=== PATIENT | male | born 1940 | race Caucasian/White ===

== ENCOUNTER 2016-12-20 09:23 | Observation (INO) | payer MEDICARE, BC ==
[~2016-12-20] VITALS: Ht 185.4 cm; Wt 95.5 kg
[2016-12-20 10:00] LABS: BASOPHILS 0.5 % (0.0-2.0); EOSINOPHILS 5.7 % (0-7); HEMATOCRIT 39.7 % (42.0-54.0); HEMOGLOBIN 13.1 g/dL (13.5-17.5); IMMATURE GRANULOCYTES 0.1 % (0-5); LYMPHOCYTES 15.8 % (15-50); MCH 29.3 pg (26.0-34.0); MCV 88.8 fL (80.0-100.0); MEAN PLATELET VOLUME 8.8 fL (7.4-10.4); MONOCYTES 8.8 % (2-11); NEUTROPHILS 69.1 % (40-80); RBC 4.47 10x6/uL (4.20-6.10); RDW 13.1 % (11.5-14.5); WBC 8.6 10x3/uL (4.8-10.8)
[2016-12-20 10:13] LABS: PLATELET COUNT 426 10x3/uL (130-400)
[2016-12-20 10:24] LABS: ALBUMIN 3.5 g/dL (3.4-5.0); ALKALINE PHOSPHATASE 91 U/L (46-116); ALT (SGPT) 11 U/L (10-68); BILIRUBIN - TOTAL 0.43 mg/dL (0.2-1.3); CALC OSMOLALITY 279 mosm/kg (275-300); CARBON DIOXIDE 28.4 mmol/L (21.0-32.0); CHLORIDE - SERUM 103 mmol/L (98-107); CREATININE - SERUM 1.1 mg/dL (0.6-1.3); GLUCOSE 104 mg/dL (74-106); POTASSIUM - SERUM 3.8 mmol/L (3.5-5.1); PROTEIN - SERUM 7.7 g/dL (6.4-8.2); SODIUM 140 mmol/L (136-145); UREA NITROGEN 15 mg/dL (7-18); eGFR NON AFRICAN AMERICAN 70 mL/min (90-120)
[2016-12-20 10:34] LABS: CHOL - HDL RATIO 3.3 ratio (2.3-4.9); CHOLESTEROL, TOTAL 167 mg/dL (0-200); CKMB 0.6 U/L (0.0-3.6); CREATINE KINASE 46 UL (21-232); HDL CHOLESTEROL 50 mg/dL (32-96); LDL CHOLESTEROL 82 mg/dL (0-100); LDL-HDL RATIO 1.6 ratio (1.5-3.5); TRIGLYCERIDE 177 mg/dL (30-200)
[2016-12-20 10:45] LABS: TROPONIN-I < 0.017 ng/mL (0.000-0.060)
--- NOTE | 2016-12-20 14:03 | NUR ---
TRANSFER FROM ER BY W/C. SUSIEINTED TO ROOM. CALL LIGHT IN REACH. WILL CONT. PLAN OF CARE.
[2016-12-20] MEDS ORDERED: CRESTOR10 MG PO (14:07)
[2016-12-20] MEDS ORDERED: OMEPRAZOLE20 M1 PO (14:08)
[2016-12-20] MEDS ORDERED: SINGULAIR10 MG PO (14:09)
[2016-12-20] MEDS ORDERED: HYZAAR 100-12.51 TAB PO (14:09)
[2016-12-20 14:24] VITALS: BP 130/69; Ht 185.4 cm; Wt 95.5 kg
[2016-12-20] MEDS ORDERED: OXYCODONE HCL5 MG PO (14:32)
[2016-12-20 16:00] VITALS: BP 117/50
--- NOTE | 2016-12-20 19:41 | NUR ---
RESUMED CARE OF PT, LYING IN BED RESPIRATIONS EVEN AND UNLABORED ON 2LPM VIA NC. 82 SR ON TELEMETRY. LEFT AC SALINE LOCKED. PLAN OF CARE DISCUSSED. CALL LIGHT IN REACH. WILL CONTINUE TO MONITOR. SEE NURSE ASSESSMENT.
[2016-12-20 20:39] VITALS: BP 122/62
--- NOTE | 2016-12-21 00:46 | NUR ---
LYING IN BED WITH EYES CLOSED, RESPIRATIONS EVEN AND UNLABORED. CALL LIGHT IN REACH.
[2016-12-21 00:47] VITALS: BP 144/67
[2016-12-21 04:56] VITALS: BP 141/73
--- NOTE | 2016-12-21 06:03 | NUR ---
FREE FROM CHEST PAIN THROUGHOUT THE NIGHT. CARDIAC ENZYMES HAVE REMAINED NEGATIVE. WILL CONTINUE TO MONITOR.
--- NOTE | 2016-12-21 07:29 | NUR ---
ASSESSMENT DONE. PT LAYING IN BED WITH HOB ELEVATED. RESTING BUT EASILY AWAKEN. DENIES CP OR SOB. STERI-STRIPS TO RIGHT BACK CLEAN,DRY AND INTACT. PT WANTS TO GO HOME. CALL LIGHT WITH IN REACH. WILL CONT. TO MONITOR.
[2016-12-21 08:26] VITALS: BP 127/68
--- NOTE | 2016-12-21 09:45 | NUR ---
RESP UL ON . CALL LIGHT IN REACH. WILL CONT. PLAN OF CARE.
[2016-12-21 12:10] VITALS: BP 138/74
--- NOTE | 2016-12-21 12:40 | CN ---
PATIENT NAME:SONYA LYNCH MEDICAL RECORD: [id number] : 44 LOCATION:D.M2 D.2126 ADMIT DATE: 12/20/16 ACCOUNT: [id number] CONSULTING PHYSICIAN: RAFY FERRIS MD REFERRING PHYSICIAN: SOPHIA BUCK MD DATE OF CONSULTATION: 12/20/2016 REQUESTING PHYSICIAN: Bert Orellana MD REASON FOR CONSULTATION: Questionable right-sided pleural effusion. HISTORY OF PRESENT ILLNESS: Mr. 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 Last week he underwent a right lower lobe lobectomy at [facility]. According to the patient, the lymph node biopsy was negative and the tumor was localized. He did well. Last night, he woke up with some epigastric pain and then he has some bowel moment and he felt the abdominal pain got better, but he has few bowel movements, which was like diarrhea. Now, he still have epigastric pain. He denies any chest pain, no shortness of breath. REVIEW OF SYSTEMS: Mainly in the history of present illness. PAST MEDICAL HISTORY: 1. Gastroesophageal reflux disease. 2. Hiatal hernia. 3. Diverticulitis. He was recently diagnosed with squamous cell carcinoma. PAST SURGICAL HISTORY: Status post right lower lobe lobectomy in November 2016 at [facility]. HOME MEDICATIONS: Singulair 10 mg daily, Protonix 40 mg a day, Crestor 10 mg a day, and hydrochlorothiazide 12.5 mg a day. PERSONAL AND SOCIAL HISTORY: The patient is . He is an ex-smoker. He is a nondrinker. He quit smoking 20 years ago. FAMILY HISTORY: Noncontributory. PHYSICAL EXAMINATION: GENERAL: Now, the patient is lying comfortably. He is not in acute distress. VITAL SIGNS: The blood pressure is 117/50, pulse is 83, respirations 20, temperature 97.9, and SpO2 is 99% on 2 liters nasal cannula. HEENT: Conjunctivae pink, sclerae nonicteric. NECK: Neck is supple, no JVD. CHEST: The chest excursion is minimal on the right side, there are crackles on the right side. HEART: Rhythm regular, normal sound, no murmur. ABDOMEN: Soft. Bowel sounds present. No hepatosplenomegaly. RECTAL: Deferred. EXTREMITIES: There is tenderness at the epigastric area. CENTRAL NERVOUS SYSTEM: Cranial nerves II through XII intact. The gait was not tested. CONSULT REPORT [id number] SONYA LYNCH IMAGING: Chest radiograph, there is operative changes in the right side, the right pleural effusion, elevated right hemidiaphragm. LABORATORY DATA: CBC: WBC 8.6, hemoglobin 13.1, hematocrit 39.7, and platelet count 426. Chemistry: Sodium 140, potassium 3.8, BUN 15, and creatinine 1.1. Liver enzymes within normal range. Troponin was 0.017. Albumin is 3.5. HDL is 50. IMPRESSION: 1. Status post right lower lobe lobectomy. 2. Squamous cell carcinoma of the right lung. 3. Chronic obstructive pulmonary disease without exacerbation. 4. Ex-smoker. 5. Epigastric pain, possible diarrhea, rule out acute gastroenteritis, possible secondary to gastroesophageal reflux disease. RECOMMENDATION: Continue Protonix, Xopenex nebulizer p.r.n., Maalox, rule out cardiac causes. If the patient is stable according to Dr. Orellana, he will be discharged. The patient already had an appointment at [facility] with the surgeon. Thank you for involving me in the care of Mr. Lynch. TRANSINT:[id number] Voice Confirmation ID: [id number] DOCUMENT ID: [id number] RAFY FERRIS MD at 1240 CC: SOPHIA BUCK MD [id number] DICTATION DATE: 12/20/16 171 TEXTILE MACHINE MECHANIC: 12/20/16 1846 ADM IN [facility] [address] [place] [address]
--- NOTE | 2016-12-21 14:44 | NUR ---
D/C INSTRUCTIONS GIVEN TO PT AND SPOUSE. IV AND TELEMETRY REMOVED. PT DECLINED W/C AND WISHES TO WALK OUT.
== END 2016-12-21 14:46 | disposition home or self-care (01) ==
LOC: D.ER 09:23 → D.M2 12:55 → OBSVTIME 12:55 → D.M2 12-21 14:46
PROVIDERS: Emergency Medicine; ADMIT Family Medicine
DX: R07.2 Precordial pain (principal); J90 Pleural effusion, not elsewhere classified; C34.90 Malignant neoplasm of unspecified part of unspecified bronchus or lung; K44.9 Diaphragmatic hernia without obstruction or gangrene; K57.92 Diverticulitis of intestine, part unspecified, without perforation or abscess without bleeding; J44.9 Chronic obstructive pulmonary disease, unspecified; K21.9 Gastro-esophageal reflux disease without esophagitis; Z90.2 Acquired absence of lung [part of]; Z87.891 Personal history of nicotine dependence

== ENCOUNTER 2017-02-05 10:35 | Inpatient (IN) | payer MEDICARE, BC ==
[~2017-02-05] VITALS: Ht 185.4 cm; Wt 90.9 kg
[~2017-02-05 10:35] MED LIST: CRESTOR10 MG PO; HYZAAR 100-12.51 TAB PO; OMEPRAZOLE20 M1 PO; OXYCODONE HCL5 MG PO; SINGULAIR10 MG PO
[2017-02-05 12:02] LABS: BASOPHILS 0.2 % (0.0-2.0); EOSINOPHILS 2.7 % (0-7); HEMATOCRIT 40.6 % (42.0-54.0); HEMOGLOBIN 13.5 g/dL (13.5-17.5); IMMATURE GRANULOCYTES 0.5 % (0-5); LYMPHOCYTES 6.9 % (15-50); MCH 29.3 pg (26.0-34.0); MCHC 33.3 g/dL (31.0-37.0); MCV 88.1 fL (80.0-100.0); MEAN PLATELET VOLUME 9.1 fL (7.4-10.4); MONOCYTES 1.4 % (2-11); NEUTROPHILS 88.3 % (40-80); RBC 4.61 10x6/uL (4.20-6.10); RDW 13.8 % (11.5-14.5); WBC 13.3 10x3/uL (4.8-10.8)
[2017-02-05 12:11] LABS: PLATELET COUNT 194 10x3/uL (130-400)
[2017-02-05 12:12] LABS: ALBUMIN 3.5 g/dL (3.4-5.0); ANION GAP 12.8 mmol/L (8-16); BILIRUBIN - TOTAL 0.7 mg/dL (0.2-1.3); CALCIUM 9.9 mg/dL (8.5-10.1); CARBON DIOXIDE 27.9 mmol/L (21.0-32.0); CREATININE - SERUM 1.4 mg/dL (0.6-1.3); POTASSIUM - SERUM 3.7 mmol/L (3.5-5.1); PROTEIN - SERUM 7.1 g/dL (6.4-8.2)
--- NOTE | 2017-02-05 15:00 | NUR ---
RECIEVED FROM ER, DENEIS NEEDS, ANTIBIOTICS STARTED, ORIENTED TO ROOM, CALL LIGHT IN REACH
[2017-02-05] MEDS ORDERED: ASPIRIN EC81 M1 PO (15:32)
[2017-02-05] MEDS ORDERED: CITRUCEL500 MG PO (15:33)
[2017-02-05] MEDS ORDERED: VITAMIN C1000 MG PO (15:33)
[2017-02-05] MEDS ORDERED: OMEGA 3 FISH OI1 CAP PO (15:34)
[2017-02-05] MEDS ORDERED: CO Q-10200 MG PO (15:35)
[2017-02-05] MEDS ORDERED: K-DUR20 MEQ PO (15:36)
[2017-02-05 15:38] VITALS: BP 109/64
[2017-02-05 17:43] VITALS: BP 109/64; Ht 185.4 cm; Wt 90.9 kg
--- NOTE | 2017-02-05 19:00 | NUR ---
PATIENT SUPINE IN BED WATCHING TV. HOB 40 DEGREES. AAOX4. RR EVEN AND UNLABORED. 0 S/S OF DISTRESS. STATES PAIN IS A 7/10 IN RIGHT SIDE. IV TO RIGHT WRIST PATENT WITH NO REDNESS OR SWELLING. TELEMETRY ON. SRX2. BED LOW. CALL LIGHT WITHIN REACH.
[2017-02-05 20:00] VITALS: BP 109/59
--- NOTE | 2017-02-05 20:10 | NUR ---
ASSESSMENT COMPLETE. NIGHTTIME MEDS GIVEN. 2000 DOSE OF ZOSYN HELD BECAUSE PREVIOUS DOSE WAS HUNG LATE. MOTRIN GIVEN FOR PAIN. WILL REASSESS. PUT SCD'S ON PATIENT PER ORDER. SCAB TO RIGHT YOO NOTED. NO OTHER NEEDS AT THIS TIME.
--- NOTE | 2017-02-05 23:00 | NUR ---
PATIENT STATES THAT PAIN IS STILL A 7/10 BUT THAT HE DOES NOT WANT TO TAKE THE NORCO. HE WANTS TO GIVE THE MOTRIN LONGER TO WORK.
[2017-02-06] VITALS: BP 116/62
--- NOTE | 2017-02-06 02:20 | NUR ---
ZOSYN HUNG PER ORDER. PATIENT SLEEPING WITH NO DISTRESS NOTED.
[2017-02-06 04:00] VITALS: BP 114/66
[2017-02-06 05:19] LABS: BASOPHILS 0.2 % (0.0-2.0); EOSINOPHILS 2.9 % (0-7); HEMATOCRIT 35.7 % (42.0-54.0); HEMOGLOBIN 11.9 g/dL (13.5-17.5); IMMATURE GRANULOCYTES 0.2 % (0-5); MCH 29.2 pg (26.0-34.0); MCHC 33.3 g/dL (31.0-37.0); MCV 87.7 fL (80.0-100.0); MEAN PLATELET VOLUME 9.1 fL (7.4-10.4); MONOCYTES 3.3 % (2-11); NEUTROPHILS 85.4 % (40-80); RBC 4.07 10x6/uL (4.20-6.10); RDW 13.7 % (11.5-14.5); WBC 10.4 10x3/uL (4.8-10.8)
[2017-02-06 05:29] LABS: PLATELET COUNT 149 10x3/uL (130-400)
--- NOTE | 2017-02-06 07:30 | NUR ---
ALERT AND ORIENTED, DENIES NEEDS, STATES HE IS DISCHARGED, ASSESSMENT COMPLETE, CALL LIGHT IN REACH BED LOWEST POSITION, WILL OCNTINUE TO MONITOR
--- NOTE | 2017-02-06 08:02 | HP ---
PATIENT: SONYA LYNCH MEDICAL RECORD: [id number] ACCOUNT: [id number] LOCATION:D.MS [id number] : 42 ADMISSION DATE: 02/05/17 HISTORY AND PHYSICAL EXAMINATION REASON FOR ADMISSION: Chest pain and cough. HISTORY OF PRESENT ILLNESS: Mr. Lynch is a 76-year-old male who underwent a right lobar lung resection for squamous cell carcinoma at [facility] approximately 2 months ago. He had complications postoperative, had admission to this hospital for postoperative pleural effusion on 12/20/2016. He started chemotherapy 5 days ago consisting of Gemzar and cisplatin at [facility]. He was also given Neulasta with neutropenia. He states he has chemotherapy 4 days ago. He started Neulasta. The day after, he felt tightness in his chest, bloated, short of breath and dry cough. He felt better the following day and the day before yesterday, but this morning, at 2:00 a.m., he woke up with more coughing that is nonproductive with tightness in his chest. He was advised by the [facility] chemo nurse to come to the ER. He denies fever. Evaluation in the ED was suggestive of a right upper lobe atelectasis or pneumonia. White count of 13,000. Dr. Antonio recommended admission. The patient denies chills or fever and stated he really felt pretty well up until this morning. Denies change in stools, blood per rectum or hemoptysis. PAST MEDICAL HISTORY: Squamous cell carcinoma of the right lung, post-resection at [facility], currently on Gemzar and cisplatin; history of hiatal hernia; umbilical hernia; diverticulitis; GERD; hyperlipidemia; hypertension; BPH. SOCIAL HISTORY: The patient is , ex-smoker, nondrinker, quit smoking 20 years ago. FAMILY HISTORY: Positive for hypertension. CURRENT MEDICATIONS: Aspirin 81 mg a day; Crestor 10 mg with evening meal; omeprazole 20 mg a day; omega-3 fish oil 1 cap p.o. daily; Hyzaar 100/12.5 one p.o. q.a.m.; Gemzar, cisplatin and Neulasta per [facility]. ALLERGIES: None mentioned. REVIEW OF SYSTEMS: GENERAL: Mild fatigue. No fever. HEENT: No recent visual change, sinus congestion or sore throat. RESPIRATORY: Dry cough, mild shortness of breath for the last 2 days post-Neulasta therapy. Denies hemoptysis, cough or sputum production. CARDIAC: No exertional chest pain. GASTROINTESTINAL: No nausea, vomiting or change in stools. GENITOURINARY: Has nocturia once nightly. ENDOCRINE: Denies polyuria, polydipsia, heat or cold intolerance. NEUROLOGIC: No history of stroke, TIA or vascular headaches. INTEGUMENT: No rash or itching. MUSCULOSKELETAL: Has lumbago, without sciatica. Now has chest wall tightness that comes and goes. PSYCHIATRIC: Denies depressed mood. PHYSICAL EXAMINATION: VITAL SIGNS: Temperature 97.4 Fahrenheit orally, pulse 97 and regular, HISTORY AND PHYSICAL [id number] SONYA LYNCH respirations are 16, blood pressure 109/62 with a sat of 99% on room air. GENERAL: The patient is alert and oriented, NAD. HEENT: Normocephalic. Eyes are clear. Oropharynx unremarkable. NECK: No bruits or masses. CHEST: He has decreased breath sounds in the right base. No wheezes are noted. Left lung is clear. Chest wall is nontender. No rashes noted. HEART: Regular rate without MGR. PMI appropriate. ABDOMEN: Soft, nontender, no organomegaly. He has a reducible, half-dollar size umbilical hernia that is nontender. No splenomegaly or left lower quadrant tenderness. GENITOURINARY: Unremarkable. RECTAL: Deferred. EXTREMITIES: No CC&E. INTEGUMENT: No rashes or petechiae. LABORATORY DATA: White count of 13.3 thousand with 88 polys, 6.9 lymphs. H&H is 13.5 and 40.6 respectively. Electrolytes are normal, creatinine is 1.4; glucose is 126, nonfasting. Liver functions are normal. Troponin I is 0.017. Single-view chest x-ray in the ED showed diffuse volume loss throughout the right lung consistent with prior lobectomy, increased right hilar prominence with some subtle airspace disease, could represent atelectasis or focal pneumonia, no pneumothorax is noted. Therefore, a 2-view chest x-ray was obtained showing scarring in the right lower lobe. No acute airspace disease or pneumothorax noted. ASSESSMENT: 1. Chest pain and shortness of breath, possibly secondary to Neulasta therapy. 2. Squamous cell carcinoma of the right lower lobe post-lobectomy. 3. Right upper lobe atelectasis versus pneumonitis. 4. Hypertension. 5. Hyperlipidemia. PLAN: The patient will be admitted for IV antibiotics. Recheck chest x-ray tomorrow. Side effects may well be related to Neulasta. Further workup as indicated. TRANSINT:[id number] Voice Confirmation ID: [id number] DOCUMENT ID: [id number] SOPHIA BUCK MD at 0802 CC: [id number] DICTATION DATE: 02/05/17 1739 OPERATIONS PROGRAM MANAGER: 02/05/17 1853 ADM IN [facility] [address] [place] [address]
[2017-02-06 08:05] VITALS: BP 106/55
--- NOTE | 2017-02-06 08:27 | NUR ---
PT AOX4 RESP EVEN AND NONLABORED PT DENIES NEEDS AT THIS TIME SRX2 BED AT LOWEST SETTING CALL LIGHT WITHIN REACH WILL CONTINUE TO MONITOR
--- NOTE | 2017-02-06 11:06 | NUR ---
DISCHARGE INSTRUCTIONS AND PAPERS GIVEN, QUESTIONS ANSWERED, IV REMOVED TIP INTACT, DISCHARGED PER WC WITH BELONGINGS
--- NOTE | 2017-02-08 06:54 | DS ---
PATIENT:SONYA CHARLES :44 MEDICAL RECORD: [id number] DISCHARGE SUMMARY ADMISSION DATE: 02/05/17 DISCHARGE DATE: 02/06/17 DISCHARGE DIAGNOSES: 1. Chest pain, noncardiac. 2. ADVERSE DRUG REACTION TO NEULASTA. 3. Leukocytosis. 4. Squamous cell carcinoma of the right lower lobe. 5. Atelectasis, right upper lobe. 6. Hypertension. 7. Hyperlipidemia. HOSPITAL COURSE: A 76-year-old male with recent right lower lobe resection for squamous cell carcinoma at [facility] on cisplatin and Gemzar was given Neulasta 4 days ago with onset of chest discomfort on the right chest. He had a dry cough, nonproductive and no fever in the ER, but these symptoms was felt to have early right upper lobe pneumonia. He was admitted. ER physician placed him on Levaquin and piperacillin/Zosyn. The patient's white count was 13,000. Upon my examination, his lungs were essentially clear except for decreased breath sounds in the right base. He had no skin lesions on his chest to suggest early shingles. He was observed overnight. His white count has dropped to 10,000. He was essentially asymptomatic and pain controlled with ibuprofen. D-dimer was obtained and was borderline elevated at 0.9, but he has no clinical symptoms of pulmonary embolus. The patient was feeling well this morning, desires discharge. I think that is prudent. I have reviewed his x-rays with the radiologist this morning, he does not see signs of pneumonia. We will therefore discharge home on his previous medications. He will have followup at [facility] in 2 days for chemo. We will a copy of his chest x-ray with him for them to evaluate. His troponin was less than 0.017. DISCHARGE MEDICATIONS: Ibuprofen mg t.i.d. p.r.n. pain, Crestor 10 mg at h.s., Prilosec 20 mg a day, Singulair 10 mg at h.s., Hyzaar 100/12.5 one q.a.m., aspirin 81 mg daily, Citrucel 1000 mg p.o. b.i.d., ascorbic acid 1000 mg p.o. daily, omega 3 fish oil 1 cap p.o. daily, CoQ10 200 mg p.o. daily. DIET: Low cholesterol. ACTIVITY: Progress as tolerated. Return to clinic to see me as needed. TRANSINT:[id number] Voice Confirmation ID: [id number] DOCUMENT ID: [id number] SOPHIA BUCK MD at 0654 CC: [id number] DICTATION DATE: 02/06/17 08 SERVICES ADVISOR: 02/07/17 0053 DIS IN 02/06/17 [place] [id number] [place] [id number]
== END 2017-02-06 11:09 | disposition home or self-care (01) | DRG 313 ==
LOC: D.ER 10:35 → D.MS 14:20
PROVIDERS: Emergency Medicine; ADMIT Family Medicine
DX: R07.89 Other chest pain (principal); C34.91 Malignant neoplasm of unspecified part of right bronchus or lung; J98.11 Atelectasis; T45.8X5A Adverse effect of other primarily systemic and hematological agents, initial encounter; I10 Essential (primary) hypertension; E78.5 Hyperlipidemia, unspecified

== ENCOUNTER → 2017-05-20 10:50 | Outpatient (CLI) | payer MEDICARE, BC ==
[2017-02-05 17:43] VITALS: BMI 26.4
[~2017-05-20 10:50] MED LIST changes: +ASPIRIN EC81 M1 PO; +CITRUCEL500 MG PO; +CO Q-10200 MG PO; +K-DUR20 MEQ PO; +OMEGA 3 FISH OI1 CAP PO; +VITAMIN C1000 MG PO
== END | disposition home or self-care (01) ==
LOC: D.US 10:50 → D.NM 13:00
DX: K59.00 Constipation, unspecified (principal)

== ENCOUNTER 2017-05-29 02:13 | Outpatient (CLI) | payer MEDICARE, BC ==
[2017-05-28 23:44] LABS: HEMATOCRIT 36.4 % (42.0-54.0); HEMOGLOBIN 12.7 g/dL (13.5-17.5); LYMPHOCYTES 19.5 % (15-50); MCH 30.8 pg (26.0-34.0); MCHC 34.9 g/dL (31.0-37.0); MCV 88.1 fL (80.0-100.0); MEAN PLATELET VOLUME 7.8 fL (7.4-10.4); NEUTROPHILS 69.8 % (40-80); RBC 4.13 10x6/uL (4.20-6.10); RDW 13.9 % (11.5-14.5); WBC 5.6 10x3/uL (4.8-10.8)
[2017-05-28 23:46] LABS: PLATELET COUNT 196 10x3/uL (130-400)
[2017-05-28 23:59] LABS: ALBUMIN 3.4 g/dL (3.4-5.0); ALKALINE PHOSPHATASE 77 U/L (46-116); ALT (SGPT) 17 U/L (10-68); BILIRUBIN - TOTAL 0.57 mg/dL (0.2-1.3); CALC OSMOLALITY 284 mosm/kg (275-300); CALCIUM 9.7 mg/dL (8.5-10.1); CARBON DIOXIDE 29.2 mmol/L (21.0-32.0); CHLORIDE - SERUM 106 mmol/L (98-107); CREATININE - SERUM 1.1 mg/dL (0.6-1.3); GLUCOSE 98 mg/dL (74-106); PROTEIN - SERUM 6.5 g/dL (6.4-8.2); SODIUM 142 mmol/L (136-145); UREA NITROGEN 19 mg/dL (7-18); eGFR NON AFRICAN AMERICAN 69 mL/min (90-120)
[~2017-05-29] VITALS: Ht 185.4 cm; Wt 86.5 kg
--- NOTE | ~2017-05-29 | HEMODYNAMI ---
PATIENT:SONYA CHARLES MEDICAL RECORD: [id number] : 44 [id number] ADMISSION DATE: 05/29/17 Generatedon:05/29/201716:04 Patient name: SONYA CHARLES Patient #: [id number] SSN: DO B: 1940 Date of study: 05/29/2017 Page: Of Hemodynamic Procedure Report Patient Data Patient Demographics Procedure consent was obtained First Name: SONYA Gender: Male Last Name: ARACELI : 1940 Middle Initial: D Age: 76 year(s) Patient #: [id number] Race: Unknown Additional ID: [id number] Contact details [address]: [address] [place] [address] COURT State: [place] City: [place] Zip code: [address] Admission Admission Data Admission Date: 05/29/2017 Admission Time: 3:25 Room #: D.2119 Procedure Procedure Types Cath Procedure Diagnostic Procedure LHC LHC w/Coronaries PCI Procedure Coronary Stent Initial Miscellaneous Procedures Moderate Sedation up to 15 minutes Procedure Description Procedure Date Procedure Date: 05/29/2017 Procedure Start Time: 15:51 Procedure End Time: 16:01 Procedure Staff Name Function Noman Hzd MD Performing Physician Sonia Pendleton RT Scrub Krishna Garcia RN Nurse Yanira Coulter RT Monitor Procedure Data Cath Procedure Fluoroscopy Diagnostic fluoroscopy Total fluoroscopy Time: 1.4 time: 1.4 min min Diagnostic fluoroscopy Total fluoroscopy dose: 242 dose: 242 mGy mGy Contrast Material Contrast Material Type Amount (ml) Isovue 300 59 Entry Location Entry Primary Successful Side Size Upsize Upsize Entry Closure Succes sful Closure Location (Fr) 1 (Fr) 2 (Fr) Remarks Device Remarks Femoral Right 5 Fr 6 Fr Exoseal artery Short Estimated blood loss: 10 ml Diagnostic catheters Device Type Used For End Catheter Placement Cordis 5Fr Pigtail Procedure Catheter (MP) Cordis 5Fr JL 4.0 Procedure Catheter (MP) Cordis 5Fr 3DRC Catheter Procedure (MP) Procedure Complications No complications Procedure Medications Medication Administration Route Dosage Oxygen NC 2 l/min Heparin Flush Bag added to field 2 bags (1000units/500ml NS) 0.9% NaCl I.V. 100 ml/hr Fentanyl I.V. 50 mcg Versed I.V. 1 mg Fentanyl I.V. 50 mcg Heparin Bolus I.V. 4000 units Integrilin (Bolus I.V. 7.9 ml 2mg/ml) Integrilin (Bolus wasted 2.1 ml 2mg/ml) Plavix P.O. 600 mg Hemodynamics Rest Pre Cath Intra NCS Post Cath Vital Signs Time Heart Resp SPO2 NIBP (mmHg) Rhythm Pain Sedation Rate (ipm) (%) Status Level (bpm) 15:33:19 65 18 97 140/68(100) NSR 0 (11) 10(A) , No pain 15:37:33 64 21 100 151/78(120) NSR 0 (11) 10(A) , No pain 15:41:51 62 17 95 120/78(91) NSR 0 (11) 10(A) , No pain 15:45:57 62 18 94 136/79(97) NSR 0 (11) 10(A) , No pain 15:50:15 60 18 99 127/60(86) NSR 0 (11) 9(A) , No pain 15:54:27 65 19 98 133/66(101) NSR 0 (11) 9(A) , No pain 15:58:45 60 18 100 132/58(98) NSR 0 (11) 9(A) , No pain 16:04:02 60 10 100 134/61(103) NSR 0 (11) 10(A) , No pain Medications Time Medication Route Dose Verified Delivered Reason Notes Effectiveness by by 15:36:49 Oxygen NC 2 Krishna Keller Per physician l/min Jose Garcia RN RN 15:36:59 Heparin Flush added 2 Krishna Keller used for Bag to bags Jose Garcia RN procedure (1000units/500ml field RN NS) 15:37:11 0.9% NaCl I.V. 100 Krishna Keller Per physician ml/hr Jose Garcia RN RN 15:47:59 Fentanyl I.V. 50 Krishna Keller for sedation mcg Jose Garcia RN RN 15:48:05 Versed I.V. 1 mg Krishna Keller for sedation Jose Garcia RN RN 15:52:42 Fentanyl I.V. 50 Krishna Keller for sedation mcg Jose Garcia RN RN 15:56:12 Heparin Bolus I.V. 4000 Krishna Keller for units Jose Garcia RN anticoagulation RN 15:56:26 Integrilin I.V. 7.9 Krishna Keller for (Bolus 2mg/ml) ml Jose Garcia RN antiplatelet RN therapy 15:57:17 Integrilin wasted 2.1 Krishna Keller for (Bolus 2mg/ml) ml Jose Garcia RN antiplatelet RN therapy 15:59:54 Plavix P.O. 600 Krishna Keller for mg Jose Garcia RN antiplatelet RN therapy Procedure Log Time Note 15:15:47 Krishna Garcia RN sent for patient. Start room use. 15:31:46 Time tracking: Regular hours 15:31:57 Plan of Care:Hemodynamics will remain stable., Cardiac rhythm will remain stable., Comfort level will be maintained., Respiratory function will remain adequate., Patient/ family verbilizes understanding of procedure., Procedure tolerated without complication., Recovers from procedure without complications.. 15:32:00 Patient received from PCU to CCL 2 Alert and oriented. Tansferred to table in Supine position. 15:32:05 Warm blankets applied, and sylwia hugger turned on for patient comfort. 15:32:05 Correct patient and procedure confirmed by team. 15:32:06 Signed procedure consent form obtained from patient. 15:32:07 ECG and BP/O2 sat monitors applied to patient. 15:32:08 Vital chart was started 15:32:09 Full Disclosure recording started 15:32:23 H&P Date Dictated: 05/28/2017 Within 30 days and on chart.. 15:32:25 Pre-procedure instructions explained to patient. 15:32:27 Family in waiting room. 15:32:29 Patient NPO since Midnight. 15:32:36 Is the patient allergic to Iodine/contrast media? No. 15:32:42 Is patient on blood thinner?Yes 15:32:46 ACC The patient was administered the following blood thiners within the last 24 hours: ACCAspirin 15:32:48 Patient diabetic? No. 15:33:03 Snore? Yes 15:33:05 Sleep apnea? No 15:33:15 Airway obstruction? No lobectomy 15:33:18 Dentures? No ? 15:33:41 Patient pain scale 0/10 ?. 15:33:50 IV patent on arrival in right hand with 0.9% NaCl at [facility]. 15:34:00 Lab results completed and on chart. 15:34:06 Right groin area was prepped with chlora-prep and draped in sterile fashion 15:34:07 Alarms reviewed by R. N. 15:34:08 Sharps counted by scrub and verified by R.N. 15:34:09 Physician paged 15:34:14 Physician arrived 15:36:49 Oxygen 2 l/min NC was administered by Krishna Garcia RN; Per physician; 15:36:59 Heparin Flush Bag (1000units/500ml NS) 2 bags added to field was administered by Krishna Garcia RN; used for procedure; 15:37:11 0.9% NaCl 100 ml/hr I.V. was administered by Krishna Garcia RN; Per physician; 15:45:26 Zero performed for pressure channel P1 15:46:41 --------ALL STOP TIME OUT------ 15:46:41 Final Timeout: patient, procedure, and site verified with staff and physician. All members of the team are in agreement. 15:46:44 Right groin site verified by team. 15:46:47 Physical assessment completed. ASA score P 2 - A patient with mild systemic disease as per Noman Hdz MD. 15:46:51 Sedation plan: IV Moderate Sedation Versed, Fentanyl 15:47:59 Fentanyl 50 mcg I.V. was administered by Krishna Garcia RN; for sedation; 15:48:05 Versed 1 mg I.V. was administered by Krishna Garcia RN; for sedation; 15:48:59 Use device set Femoral Dx 15:49:00 Acist Syringe opened to sterile field. 15:49:00 Bag Decanter opened to sterile field. 15:49:01 Medline Cath Pack opened to sterile field. 15:49:01 Terumo 5Fr [place] Sheath opened to sterile field. 15:49:02 St Kenneth 260cm J .035 wire opened to sterile field. 15:49:03 Acist Hand Control opened to sterile field. 15:49:04 Acist Manifold opened to sterile field. 15:49:04 Diagnostic Infinity 5Fr Multipack catheter opened to sterile field. 15:49:10 Tegaderm 4 x 4 opened to sterile field. 15:51:47 Procedure started. 15:51:59 Local anesthetic to right femoral artery with Lidocaine 2% by Noman Hdz MD.INITIAL ACCESS ONLY 15:52:09 A 5 Fr sheath was inserted into the Right Femoral artery 15:52:19 A Cordis 5Fr Pigtail Catheter (MP) was advanced over the wire and used for Procedure. 15:52:42 Fentanyl 50 mcg I.V. was administered by Krishna Garcia RN; for sedation; 15:52:52 EF : 50 % 15:52:58 Catheter removed. 15:53:06 A Cordis 5Fr JL 4.0 Catheter (MP) was advanced over the wire and used for Procedure. 15:53:26 LCA angiography performed. 15:53:48 Catheter removed. 15:53:55 A Cordis 5Fr 3DRC Catheter (MP) was advanced over the wire and used for Procedure. 15:53:58 RCA angiography performed. 15:54:30 Catheter removed. 15:55:38 Cordis 6FR XBLAD 3.5 guide catheter opened to sterile field. 15:55:40 Terumo 6Fr [place] Sheath opened to sterile field. 15:55:41 Careem BasixCompak Inflation Kit opened to sterile field. 15:55:42 Gan Whisper J 300cm 0.014 guide wire opened to sterile field. 15:55:56 Sheath upsized to a 6 Fr Short. 15:56:12 Heparin Bolus 4000 units I.V. was administered by Krishna Garcia RN; for anticoagulation; 15:56:26 Integrilin (Bolus 2mg/ml) 7.9 ml I.V. was administered by Krishna Garcia RN; for antiplatelet therapy; 15:56:57 6 Fr XBLAD guide catheter was inserted over the wire 15:56:59 Wire advanced across lesion. 15:57:17 Integrilin (Bolus 2mg/ml) 2.1 ml wasted was administered by Krishna Garcia RN; for antiplatelet therapy; 15:57:34 Inflation Number: 1 A Trekea Integrity 3.0 X 18 stent was prepped and advanced across the Mid LAD. The stent was deployed at 11 [place] for 0:00 (min:sec). 15:59:01 Wire removed. 15:59:02 Guide catheter removed. 15:59:15 Sheath removed intact; hemostasis achieved with Exoseal to the Right Femoral artery. 15:59:27 Cordis 6Fr Exoseal opened to sterile field. 15:59:30 Procedure ended.(Physican Out) 15:59:45 Fluoroscopy time 01.40 minutes. 15:59:51 Fluoroscopy dose: 242 mGy 15:59:51 Flurop Dose total: 242 15:59:54 Plavix 600 mg P.O. was administered by Krishna Garcia RN; for antiplatelet therapy; 16:00:11 Contrast amount:Isovue 300 59ml. 16:00:13 Sharps counted by scrub and verified by R.N. 16:00:15 Insertion/operative site no bleeding no hematoma. 16:00:20 Post-op/insertion site Right Femoral artery dressed using a 4 x 4 and Tegaderm. 16:00:22 Post Procedure Pulses reassessed and unchanged 16:00:28 Post-procedure physical assessment completed. ASA score P 2 - A patient with mild systemic disease as per Noman Hdz MD. 16:00:31 Post procedure rhythm: unchanged. 16:00:34 Estimated blood loss: 10 ml 16:00:36 Post procedure instruction explained to patient.Patient verbalizes understanding. 16:00:42 Procedure type changed to Cath procedure, Diagnostic procedure, LHC, LHC w/Coronaries, PCI procedure, Coronary Stent Initial, Miscellaneous Procedures, Moderate Sedation up to 15 minutes 16:00:44 Procedure and supply charges have been captured, reviewed, submitted and are correct. 16:01:20 Procedure Complication : No complications 16:01:23 Vital chart was stopped 16:01:24 See physician's report for complete and final results. 16:01:29 Report given to Med II. 16:01:35 Patient transfered to Med II with Bed. 16::37 Procedure ended. 16:01:37 Full Disclosure recording stopped 16::44 End room use (Document Last) 16:01:57 ACC-PCI Only Patient was given prescriptions, or instructed by Noman Hdz MD to start/continue the following medications upon discharge: Plavix Intervention Summary Intervention Notes Time ActionType Lesion and Equipment Action# Pressure Duration Attributes Used 15:57:34 Place stent Mid LAD Medtronic 1 11 00:00 Integrity 3.0 X 18 stent Device Usage Item Name Manufacture Quantity Catalog Hospital Part Current Minimal L ot# / Number Charge Number Stock Stock Serial# Code Acist Acist 1 97814 951982 467443 952211 20 Syringe Medical Systems Inc Bag Microtek 1 2002S 760985 29952 568544 5 DecQVIVO Medical Inc. Medline Cardinal 1 [id number] 319106 32276 361697 5 Cath Pack Health Terumo 5Fr Terumo 1 MHC828 468149 421013 240600 [address] Kenneth 1 954236 411429 834821 990936 30 260cm J .035 wire Acist Hand Acist 1 82976 853291 547134 316499 5 Control Medical Systems Inc Acist Acist 1 80235 006136 035089 116304 5 LiveExercise Medical Systems Inc Diagnostic Cardinal 1 [id number] 943793 61220 862796 30 Infinity Health 5Fr Multipack catheter Tegaderm 4 3M 1 1626W 357959 300099 020906 5 x 4 Cordis 5Fr Cardinal 1 781297 5 Pigtail Health Catheter (MP) Cordis 5Fr Cardinal 1 413023 5 JL 4.0 Health Catheter (MP) Cordis 5Fr Cardinal 1 566802 5 3DRC Health Catheter (MP) Cordis 6FR Cardinal 1 [id number] 291310 502064 216558 10 XBLAD 3.5 Health guide catheter Terumo 6Fr Terumo 1 [id number] 433073 784497 587880 40 [place] Sheath Merit Merit 1 WY9102 394312 877982 915509 15 BasixOnfank Medical Inflation Kit Gan Gan 1 [id number] 366829 302668 815944 5 Whisper J Vascular 300cm 0.014 guide wire Medtronic Medtronic 1 [id number] 132209 247916 1 0 [id number] Integrity 3.0 X 18 stent Cordis 6Fr Cardinal 1 EX600 949696 336486 417858 10 WANdisco Signature Audit Mineral Stage Time Signature Unsigned Intra-Procedure 05/29/2017 Yanira Coulter 4:04:40 PM RT(R) Signatures Monitor : Yanira Coulter Signature : RT Date : Time : [address] [place] [address]
[2017-05-29 00:12] LABS: CHOL - HDL RATIO 3.2 ratio (2.3-4.9); CHOLESTEROL, TOTAL 153 mg/dL (0-200); CKMB 0.6 U/L (0.0-3.6); CREATINE KINASE 62 UL (21-232); HDL CHOLESTEROL 48 mg/dL (32-96); LDL CHOLESTEROL 59 mg/dL (0-100); LDL-HDL RATIO 1.2 ratio (1.5-3.5); TRIGLYCERIDE 231 mg/dL (30-200); TROPONIN-I < 0.017 ng/mL (0.000-0.060)
[2017-05-29 03:37] LABS: CKMB 0.7 U/L (0.0-3.6); CREATINE KINASE 63 UL (21-232); TROPONIN-I < 0.017 ng/mL (0.000-0.060)
--- NOTE | 2017-05-29 07:35 | NUR ---
TRANSFER FROM ER BY W/C. SUSIEINTED TO ROOM. CALL LIGHT IN REACH. WILL CONT. PLAN OF CARE.
[2017-05-29 08:10] VITALS: Ht 185.4 cm; Wt 86.5 kg
[2017-05-29 08:50] LABS: BASOPHILS 0.2 % (0-2); EOSINOPHILS 5.5 % (0-7); HEMATOCRIT 38.3 % (42.0-54.0); IMMATURE GRANULOCYTES 0.2 % (0-5); LYMPHOCYTES 19.5 % (15-50); MCH 30.8 pg (26.0-34.0); MCHC 33.9 g/dL (31.0-37.0); MEAN PLATELET VOLUME 8.4 fL (7.4-10.4); MONOCYTES 8.5 % (2-11); NEUTROPHILS 66.1 % (40-80); RBC 4.22 10x6/uL (4.20-6.10); RDW 13.8 % (11.5-14.5); WBC 5.1 10x3/uL (4.8-10.8)
[2017-05-29 08:56] LABS: MCV 90.8 fL (80.0-100.0); PLATELET COUNT 149 10x3/uL (130-400)
[2017-05-29 09:07] VITALS: BP 121/66
[2017-05-29 09:20] LABS: CALC OSMOLALITY 286 mosm/kg (275-300); CALCIUM 9.8 mg/dL (8.5-10.1); CARBON DIOXIDE 29.6 mmol/L (21.0-32.0); CHLORIDE - SERUM 107 mmol/L (98-107); CKMB 0.4 U/L (0.0-3.6); CREATINE KINASE 51 UL (21-232); GLUCOSE 96 mg/dL (74-106); POTASSIUM - SERUM 3.8 mmol/L (3.5-5.1); SODIUM 143 mmol/L (136-145); UREA NITROGEN 18 mg/dL (7-18); eGFR NON AFRICAN AMERICAN 78 mL/min (90-120)
[2017-05-29 09:21] LABS: TROPONIN-I < 0.017 ng/mL (0.000-0.060)
--- NOTE | 2017-05-29 09:56 | NUR ---
TELEMETRY SR. CONSENTS SIGNED FOR [facility]. WILL CONT. PLAN OF CARE.
[2017-05-29 12:08] VITALS: BP 120/62
[2017-05-29 15:16] LABS: CKMB 0.5 U/L (0.0-3.6); CREATINE KINASE 46 UL (21-232); TROPONIN-I < 0.017 ng/mL (0.000-0.060)
--- NOTE | 2017-05-29 15:19 | NUR ---
PRE-OPS GIVEN. TO INDUSTRIAL RELATIONS ANALYST BY BED.
[2017-05-29 19:00] VITALS: BP 126/55
--- NOTE | 2017-05-29 20:42 | NUR ---
RESUMED CARE OF PT, LYING IN BED RESPIRATIONS EVEN AND UNLABORED ON ROOM AIR. RIGHT FOREARM INFUSING NS @ 100. [address] ON TELEMETRY. RIGHT GROIN C/D/I, PEDAL PULSE PALPABLE. CALL LIGHT IN REACH. WILL CONTINUE TO MONITOR. SEE NURSE ASSESSMENT.
--- NOTE | 2017-05-30 01:34 | NUR ---
CALL LIGHT IN REACH, WILL CONTINUE WITH PLAN OF CARE.
[2017-05-30 06:03] LABS: BASOPHILS 0.5 % (0-2); EOSINOPHILS 5.8 % (0-7); HEMATOCRIT 38.3 % (42.0-54.0); MCHC 33.9 g/dL (31.0-37.0); MCV 91.2 fL (80.0-100.0); MEAN PLATELET VOLUME 8.5 fL (7.4-10.4); NEUTROPHILS 62.7 % (40-80); PLATELET COUNT 148 10x3/uL (130-400)
[2017-05-30 06:21] LABS: ANION GAP 11.9 mmol/L (8-16); CARBON DIOXIDE 29.2 mmol/L (21.0-32.0); CREATININE - SERUM 1.1 mg/dL (0.6-1.3); POTASSIUM - SERUM 4.1 mmol/L (3.5-5.1)
[2017-05-30 06:24] VITALS: BP 141/75
[2017-05-30 06:28] LABS: CALCIUM 9.9 mg/dL (8.5-10.1)
[2017-05-30] MEDS ORDERED: PROTONIX40 MG PO (07:16)
[2017-05-30] MEDS ORDERED: PLAVIX75 MG PO (07:16)
--- NOTE | 2017-05-30 07:30 | NUR ---
RECEIVED PT IN BED AAOX4 RESP UNLABORED NAD NOTED VISITING WITH DR BUCK
[2017-05-30 08:00] VITALS: BP 126/69
--- NOTE | 2017-05-30 10:23 | NUR ---
REVIEWED DISCHARGE INSTRUCTIONS WITH PT STATES UNDERSTANDING COPY GIVEN DCD SALINE LOCK TO RFA WITH 20 GA IV CATH INTACT SITE FREE OF REDNESS OR EDEMA PT DISCHARGED HOME IN STABLE CONDITION WITH ALL PERSONAL BELONGINGS LEFT VIA W/C
--- NOTE | 2017-06-05 13:54 | PRO ---
PATIENT:SONYA CHARLES MEDICAL RECORD: [id number] : 44 LOCATION:[facility] ADMISSION DATE: 05/29/17 PROCEDURE PERFORMED BY: FREDERICK MARTIN MD PROCEDURE DATE: 05/29/17 PROCEDURES: 1. Percutaneous transluminal coronary angioplasty stent left anterior descending. 2. Left heart catheterization. 3. Selective coronary angiography. 4. Left ventriculogram. INDICATION: Unstable angina. PROCEDURE IN DETAIL: After informed consent was obtained and after detailed explanation of risks, benefits, as well as alternative therapies, the patient elected to proceed with angiogram and angioplasty. The right femoral area was prepped and draped in a normal sterile fashion. The right femoral artery was cannulated via modified Seldinger technique with placement of 6-Greek sheath. All catheters exchanged through this sheath. FINDINGS: Left ventricular chamber size is within normal limits. Left ventricular systolic function is normal. Overall ejection fraction estimated at 60%. SELECTIVE CORONARY ANGIOGRAPHY: 1. Left main is with no significant angiographic disease. 2. The left anterior descending has 75% stenosis in the mid vessel. Otherwise, only mild irregularities. 3. The left circumflex has mild irregularities but no flow-limiting stenosis. 4. The right coronary artery has mild irregularities but no flow-limiting stenosis. PTCA STENT OF THE LEFT ANTERIOR DESCENDING: The stent used is a 3.0 X 18 millimeter Integrity. The result was 0% residual stenosis. OVERALL IMPRESSION: Successful percutaneous transluminal coronary angioplasty stent of the left anterior descending going from 75% initial stenosis to 0% residual stenosis. FREDERICK MARTIN MD at 1354 CC: [id number] DICTATION DATE: 05/29/17 1500 WEB WORKER: DM 05/30/17 1440 DEP CLI 05/30/17 [place] [id number] [place] [id number]
== END 2017-05-30 10:23 | disposition home or self-care (01) ==
LOC: OBSVTIME → D.CATH 02:13 → D.M2 03:25 → D.ER 03:25 → OBSVTIME 03:25 → D.M2 03:25 → EDSTATUS 09:00 → D.M2 05-30 10:23 → D.CATH 05-30 10:23
PROVIDERS: Family Medicine; Internal Medicine Interventional Cardiology
DX: I25.110 Atherosclerotic heart disease of native coronary artery with unstable angina pectoris (principal); I10 Essential (primary) hypertension; C34.31 Malignant neoplasm of lower lobe, right bronchus or lung; E78.5 Hyperlipidemia, unspecified; Z82.49 Family history of ischemic heart disease and other diseases of the circulatory system; Z01.812 Encounter for preprocedural laboratory examination; J45.909 Unspecified asthma, uncomplicated; Z87.891 Personal history of nicotine dependence; Z98.890 Other specified postprocedural states; F41.9 Anxiety disorder, unspecified; K21.9 Gastro-esophageal reflux disease without esophagitis; K44.9 Diaphragmatic hernia without obstruction or gangrene; K81.9 Cholecystitis, unspecified; Z79.82 Long term (current) use of aspirin; Z79.899 Other long term (current) drug therapy; Z88.6 Allergy status to analgesic agent; Z88.8 Allergy status to other drugs, medicaments and biological substances

== ENCOUNTER 2017-06-09 11:56 | Observation (INO) | payer MEDICARE, BC ==
[~2017-06-09] VITALS: Ht 185.4 cm; Wt 86.4 kg
--- NOTE | ~2017-06-09 | HP ---
PATIENT: SONYA CHARLES MEDICAL RECORD: [id number] ACCOUNT: [id number] LOCATION:[facility].0 : 42 ADMISSION DATE: 06/09/17 HISTORY AND PHYSICAL EXAMINATION REASON FOR OBSERVATION ADMISSION: Acute onset of his left scapular pain and vertigo. HISTORY OF PRESENT ILLNESS: The patient is a 76-year-old male, who underwent an Integrity stent to the mid LAD for 75% stenosis and exertional chest pain last week. Did well with procedure and felt well. He went back to Saturday school this morning with his , and while driving home, he was not feeling well, he stated that he felt like he had some upper shoulder discomfort, then developed marked vertigo. He cannot raise his head up without the room spinning and he was nauseous. He denied exertional chest pain and said this pain is scapular with similarly what he had with angina, but he had no typical exertional anginal symptoms as before. He also has known acalculous cholelithiasis, was scheduled for surgery prior to his stent placement. The patient came to the ED and was very anxious and vertiginous. He was given Antivert and some IV fluids and he is now improved somewhat, but due to his upper chest and scapular pain, I was elected to observe him overnight. Denies any recent sinus congestion or previous vertigo or head injury. 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 History of asthma, anxiety, hyperlipidemia, osteoarthritis and essential hypertension. PAST SURGICAL HISTORY: Right lower lobectomy in November 2016 for squamous cell carcinoma at [facility]. He has had left knee arthroscopy. ALLERGIES: MELOXICAM, SIMVASTATIN. FAMILY HISTORY: Positive for lung disease in his father. SOCIAL HISTORY: A former smoker. No alcohol use or recreational drug use. 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 HOME MEDICATIONS: Plavix 75 mg a day; Crestor 10 mg Saturday, Saturday and Saturday evening; losartan 50 mg daily/12.5 q. day, losartan and HCTZ 50/12.5 one q.a.m., fish oil 1 cap daily, aspirin 81 mg a day, ascorbic acid, vitamin C 1000 mg daily, Protonix 40 mg a day, Singulair 10 mg with evening meal, Tylenol 500 mg q.6 p.r.n. REVIEW OF SYSTEMS: GENERAL: No fever or fatigue and felt well until this afternoon. HEENT: No recent visual change or hearing difficulty of new onset. He had marked vertigo as mentioned with the room spinning, now improving post-therapy. Denies otalgia. RESPIRATORY: No SOB. CARDIAC: No exertional chest pain, has left scapular pain that is worse with moving and raising his arm, abducting his left shoulder and is tender to palpation over the medial scapula. HISTORY AND PHYSICAL [id number] SONYA CHARLES RESPIRATORY: No shortness of breath. GASTROINTESTINAL: No nausea or vomiting except nausea associated with the vertigo, which has improved. ENDOCRINE: Denies polyuria, polydipsia, heat or cold intolerance. NEUROLOGIC: No history of stroke, TIA, or vascular headaches. INTEGUMENT: No rash or itching. PHYSICAL EXAMINATION: VITAL SIGNS: Temperature 97.2 Fahrenheit, pulse 66 and regular, respirations 22 and unlabored, blood pressure 160/64 with a sat of 100% on room air. HEENT: Head is normocephalic. Eyes are clear. Ears visualized with normal TMs. No erythema. Extraocular muscles are intact and upper, lower or downward gaze does not cause more vertigo. NECK: No bruits or masses. CHEST: Nontender. CHEST: Clear with some pain in his left upper scapula with deep inspiration. HEART: Regular rate. ABDOMEN: Soft and nontender. GENITOURINARY: Deferred. EXTREMITIES: No CC&E. SKIN: He has some bruising over his right ankle medially. This was the side his cardiac catheterization was performed on. UPPER BACK: On exam, he has reproducible pain in his left scapula with palpation medially and inferiorly in the scapula and also with raising his arm up to 90 degrees. Pain improved in lowering his arm. IMAGING: CT head is unremarkable for bleed or stroke. Chest x-ray shows right jugular [id number], right hemidiaphragm is elevated from previous surgery. Otherwise, no acute cardiopulmonary disease is appreciated. LABORATORY DATA: His white count is 7000, H&H of 13 and 38.8 with normal diff. Chemistry is normal. Glucose is normal. Liver functions are normal. Troponin is negative times 2. ASSESSMENT: 1. Acute vertigo. 2. Atypical chest and scapular pain with recent PTCA of the LAD. 3. Squamous cell carcinoma of the right lower lobe post lobectomy. 4. Hypertension. 5. Anxiety. 6. Probable pleurisy and scapular bursitis. PLAN: The patient was admitted for observation. We will have serial enzymes and telemetry. We will place on scheduled Tylenol to see if that improve his pain. Also placed on Antivert 25 mg q.8 hours routine, reevaluate in the morning. TRANSINT:[id number] Voice Confirmation ID: [id number] DOCUMENT ID: [id number] 06/11/2017 Edited to fill in lori downing. HISTORY AND PHYSICAL [id number] SONYA CHARLES TIMOTHY MD CC: [id number] DICTATION DATE: 06/09/171917 BATHING SUIT MAKER: 06/09/17 2346 DIS IN 06/10/17 [facility] [address] [place] [address]
[~2017-06-09 11:56] MED LIST changes: +PLAVIX75 MG PO; +PROTONIX40 MG PO
[2017-06-09 12:22] LABS: BASOPHILS 0.4 % (0-2); HEMATOCRIT 38.8 % (42.0-54.0); HEMOGLOBIN 13.1 g/dL (13.5-17.5); IMMATURE GRANULOCYTES 0.1 % (0-5); LYMPHOCYTES 27.7 % (15-50); MCH 30.5 pg (26.0-34.0); MCHC 33.8 g/dL (31.0-37.0); MCV 90.4 fL (80.0-100.0); MEAN PLATELET VOLUME 8.5 fL (7.4-10.4); MONOCYTES 8.8 % (2-11); PLATELET COUNT 186 10x3/uL (130-400); RBC 4.29 10x6/uL (4.20-6.10); RDW 13.4 % (11.5-14.5); WBC 7.3 10x3/uL (4.8-10.8)
[2017-06-09 12:40] LABS: ALBUMIN 3.9 g/dL (3.4-5.0); ALKALINE PHOSPHATASE 80 U/L (46-116); ALT (SGPT) 16 U/L (10-68); BILIRUBIN - TOTAL 0.68 mg/dL (0.2-1.3); CALC OSMOLALITY 280 mosm/kg (275-300); CALCIUM 10.2 mg/dL (8.5-10.1); CARBON DIOXIDE 26.9 mmol/L (21.0-32.0); CHLORIDE - SERUM 105 mmol/L (98-107); CREATININE - SERUM 1.1 mg/dL (0.6-1.3); GLUCOSE 89 mg/dL (74-106); POTASSIUM - SERUM 3.9 mmol/L (3.5-5.1); PROTEIN - SERUM 6.6 g/dL (6.4-8.2); SODIUM 141 mmol/L (136-145); UREA NITROGEN 16 mg/dL (7-18); eGFR NON AFRICAN AMERICAN 69 mL/min (90-120)
[2017-06-09 12:51] LABS: CHOLESTEROL, TOTAL 160 mg/dL (0-200); CKMB 0.5 U/L (0.0-3.6); CREATINE KINASE 62 UL (21-232); HDL CHOLESTEROL 53 mg/dL (32-96); LDL CHOLESTEROL 82 mg/dL (0-100); LDL-HDL RATIO 1.5 ratio (1.5-3.5); TRIGLYCERIDE 129 mg/dL (30-200)
[2017-06-09 12:53] LABS: TROPONIN-I < 0.017 ng/mL (0.000-0.060)
[2017-06-09] MEDS ORDERED: HYZAAR 50-12.51 TAB PO (16:25)
--- NOTE | 2017-06-09 16:44 | NUR ---
RECIEVED FROM ER. ALERT AND ORIENTED. IP TO RIGHT CHEST. IV TO LEFT HAND. DENIES ANY NEEDS AT PRESENT TIME. DR. BUCK HERE
[2017-06-09 17:07] VITALS: Ht 185.4 cm; Wt 86.4 kg
[2017-06-09 17:24] LABS: CREATINE KINASE 53 UL (21-232)
[2017-06-09 17:25] LABS: TROPONIN-I < 0.017 ng/mL (0.000-0.060)
--- NOTE | 2017-06-09 18:33 | NUR ---
HOB UP. DENIES ANY NEEDS. NO PAIN. TELEMERTY SHOWS SR.SR UP WITH CALL LIGHT IN REACH
--- NOTE | 2017-06-09 20:00 | NUR ---
RESTING IN BED WITH NO DISTRESS. RESPS EVEN/NONLABORED ON ROOM AIR. DENIES CHEST PAIN. SR PER TELEMETRY NS @ 75ML/HR. SEE ASSESSMENT. CPOC.
[2017-06-09 21:40] VITALS: BP 119/61
--- NOTE | 2017-06-09 22:43 | NUR ---
HS MEDS GIVEN. REVIEWED PURPOSE OF MECLIZINE. GAVE NORCO FOR BACK PAIN AND HELD SCHEDULED TYLENOL.
[2017-06-09 23:17] LABS: CREATINE KINASE 48 UL (21-232); TROPONIN-I < 0.017 ng/mL (0.000-0.060)
[2017-06-10 04:36] VITALS: BP 115/60
[2017-06-10 05:19] LABS: CKMB 0.1 U/L (0.0-3.6); CREATINE KINASE 42 UL (21-232)
[2017-06-10 05:21] LABS: TROPONIN-I < 0.017 ng/mL (0.000-0.060)
[2017-06-10 08:00] VITALS: BP 110/53
--- NOTE | 2017-06-10 09:48 | NUR ---
TELEMETRY SR. IP ACCESSED AND FLUSHED WITH 10CC NS. BLOOD RETURN NOTED. LINE IS PATENT.
[2017-06-10 12:46] VITALS: BP 124/57
[2017-06-10] MEDS ORDERED: MECLIZINE HCL25 MG PO (12:56)
--- NOTE | 2017-06-10 14:43 | NUR ---
IV AND TELEMETRY DCD. DC PLANS GIVEN. UNDERSTANDING VOICED. ESCORTED TO CAR BY W/C.
== END 2017-06-10 14:45 | disposition home or self-care (01) ==
LOC: D.ER 11:56 → OBSVTIME 14:15 → D.M2 14:15
PROVIDERS: Family Medicine; ADMIT Family Medicine
DX: R07.89 Other chest pain (principal); R42 Dizziness and giddiness; I25.10 Atherosclerotic heart disease of native coronary artery without angina pectoris; Z95.5 Presence of coronary angioplasty implant and graft; Z85.118 Personal history of other malignant neoplasm of bronchus and lung; I10 Essential (primary) hypertension; E78.5 Hyperlipidemia, unspecified; F41.9 Anxiety disorder, unspecified; Z87.891 Personal history of nicotine dependence; K21.9 Gastro-esophageal reflux disease without esophagitis; K81.9 Cholecystitis, unspecified

== ENCOUNTER 2017-07-09 11:01 | Outpatient (CLI) | payer MEDICARE, BC ==
[~2017-07-09] VITALS: Ht 185.4 cm; Wt 87.7 kg
[~2017-07-09 11:01] MED LIST changes: +HYZAAR 50-12.51 TAB PO; +MECLIZINE HCL25 MG PO
[2017-07-09 11:29] VITALS: BP 118/68; Ht 185.4 cm; Wt 87.7 kg
--- NOTE | 2017-07-09 11:48 | NUR ---
1135 PORT RT CHEST FLUSHED WITH 20G 1" RAZA NEEDLE WITH NS AND HEPARIN EASILY. 1145 RELEASED AMB.
== END 2017-07-09 11:45 | disposition home or self-care (01) ==
LOC: D.OPS 11:01
DX: C34.90 Malignant neoplasm of unspecified part of unspecified bronchus or lung (principal)

== ENCOUNTER 2017-07-18 05:27 | Day surgery (SDC) | payer MEDICARE, BC ==
[2017-07-17 12:36] LABS: BASOPHILS 0.3 % (0-2); EOSINOPHILS 4.6 % (0-7); HEMATOCRIT 40.3 % (42.0-54.0); HEMOGLOBIN 13.9 g/dL (13.5-17.5); IMMATURE GRANULOCYTES 0.1 % (0-5); LYMPHOCYTES 18.3 % (15-50); MCH 31.4 pg (26.0-34.0); MCHC 34.5 g/dL (31.0-37.0); MEAN PLATELET VOLUME 8.4 fL (7.4-10.4); MONOCYTES 8.8 % (2-11); NEUTROPHILS 67.9 % (40-80); PLATELET COUNT 172 10x3/uL (130-400); RBC 4.43 10x6/uL (4.20-6.10); RDW 13.5 % (11.5-14.5); WBC 7.7 10x3/uL (4.8-10.8)
[2017-07-17 12:57] LABS: APTT 26.6 SECONDS (22.8-39.4); INR 0.87 (0.85-1.17); PROTIME 11.7 SECONDS (11.6-15.0)
[2017-07-17 13:06] LABS: ANION GAP 13.6 mmol/L (8-16); CALCIUM 10.4 mg/dL (8.5-10.1); CARBON DIOXIDE 29.2 mmol/L (21.0-32.0); CREATININE - SERUM 1.1 mg/dL (0.6-1.3); POTASSIUM - SERUM 4.8 mmol/L (3.5-5.1)
[~2017-07-18] VITALS: Ht 185.4 cm; Wt 87.5 kg
[~2017-07-18 05:27] MED LIST changes: +CO Q-1030 MG PO; +MULTIPLE VITAMI1 TA1 PO; +PRESERVISION AR1 CAP PO
[2017-07-18 07:53] VITALS: BP 127/77; Ht 185.4 cm; Wt 87.5 kg
[2017-07-18] MEDS ORDERED: HYDROCODONE-APA1 TAB PO (11:22)
--- NOTE | 2017-07-18 13:30 | NUR ---
1318--PT COMPLAINS OF PAIN, RATES PAIN 02/18. NORCO 10/325MG X1 TAB GIVEN PO, WILL CONTINUE TO MONITOR. HALIE VILLARREAL
--- NOTE | 2017-07-18 18:05 | NUR ---
1657--PT UNABLE TO VOID, BLADDER SCANNED WITH 411MLS OF URINE NOTED IN BLADDER. PT UP TO THE BATHROOM AND VOIDS AFTER BLADDER SCANNER. IV DC'D. HALIE VILLARREAL 1826--DISCHARGE INSTRUCTIONS GIVEN, PT VERBALIZES UNDERSTANDING. PT OFF UNIT VIA WC. HALIE VILLARREAL
--- NOTE | 2017-07-19 13:45 | OP ---
PATIENT NAME: SONYA CHARLES MEDICAL RECORD: [id number] :44 LOCATION:[facility] ADMISSION DATE: SURGEON: TRINO NOONAN MD DATE OF OPERATION: 07/18/2017 PREOPERATIVE DIAGNOSES: 1. Biliary dyskinesia. 2. Umbilical hernia. 3. Hypertension. 4. Gastroesophageal reflux disease. 5. Coronary artery disease. 6. Asthma. POSTOPERATIVE DIAGNOSES: 1. Biliary dyskinesia. 2. Umbilical hernia. 3. Hypertension. 4. Gastroesophageal reflux disease. 5. Coronary artery disease. 6. Asthma. PROCEDURE: 1. Single incision laparoscopic cholecystectomy. 2. Umbilical hernia repairs without mesh. SURGEON: Trino Noonan MD REPORT OF PROCEDURE: The patient's abdomen was prepped and draped in sterile fashion. A linear incision was made through the umbilicus overlying the hernia defect. There was an incarcerated fatty hernia present. The defect itself was about a centimeter in greatest diameter. I extended the fascia superiorly and inferiorly in the midline and this allowed me to reduce the hernia contents. The SILS port was then inserted and the abdomen was insufflated. The gallbladder was grasped and elevated and upon doing this, the gallbladder perforated and there was a spillage of bile. The cystic artery and duct were dissected free and these were clipped proximally and distally and ligated in standard fashion. The gallbladder was taken off the liver bed using electrocautery and placed in the right upper quadrant. Any bleeding from the liver bed was treated with electrocautery. We irrigated out all bilious fluid which was present. At this point, the ports and insufflation were then removed and the gallbladder was taken out through the umbilicus. The umbilical fascia was freed up and then reapproximated with interrupted 0 Prolenes times 5. We then tacked the Prolenes down using interrupted 3-0 Vicryls. The umbilicus was tacked down using a single interrupted 3-0 Vicryl. We then reapproximated the subcutaneous tissues and then closed the skin with running subcutaneous 5-0 Monocryl. A 10 mL of 0.25% Marcaine plain was infused into the surrounding tissues and the wound was dressed appropriately. COMPLICATIONS: None. CONDITION: Stable. ANESTHESIA: General endotracheal and local. BLOOD LOSS: Minimal. OPERATIVE REPORT [id number] SONYA CHARLES TRANSINT:[id number] Voice Confirmation ID: [id number] DOCUMENT ID: [id number] TRINO NOONAN MD at 1345 CC: SOPHIA BUCK MD [id number] DICTATION DATE: 07/18/17 1126 [employer] TRUCK DRIVER: 07/18/17 1200 [facility] 07/18/17 [place] [id number]
== END 2017-07-18 17:55 | disposition home or self-care (01) ==
LOC: D.OPS 05:27 → D.PAN 10:30 → D.OPS 17:55
PROVIDERS: Anesthesiology; Surgery
DX: K82.8 Other specified diseases of gallbladder (principal); K42.9 Umbilical hernia without obstruction or gangrene; I10 Essential (primary) hypertension; K21.9 Gastro-esophageal reflux disease without esophagitis; I25.10 Atherosclerotic heart disease of native coronary artery without angina pectoris; J45.909 Unspecified asthma, uncomplicated; Z95.5 Presence of coronary angioplasty implant and graft; Z01.812 Encounter for preprocedural laboratory examination

== ENCOUNTER 2019-08-21 08:49 | Outpatient (CLI) | payer MEDICARE, BC ==
[~2019-08-21] VITALS: Ht 185.4 cm; Wt 92.3 kg
--- NOTE | ~2019-08-21 | HEMODYNAMI ---
PATIENT:SONYA CHARLES MEDICAL RECORD: [id number] : 44 LOCATION:[facility] ADMISSION DATE: 08/21/19 Generatedon:08/21/201914:40 Patient name: SONYA CHARLES Patient #: [id number] SSN: [id number] : 1940 Date of study: 08/21/2019 Page: Of Hemodynamic Procedure Report Patient Data Patient Demographics Procedure consent was obtained First Name: SONYA Gender: Male Last Name: ARACELI : 1940 Middle Initial: D Age: 78 year(s) Patient #: [id number] Race: Unknown SSN: [id number] Additional ID: [id number] Contact details [address]: [address] [place] [address] [place] State: [place] City: [place] Zip code: [address] Past Medical History Allergies Allergen Reaction Date Comments Reported Other allergy 08/21/2019 see chrt Admission Admission Data Admission Date: 08/21/2019 Admission Time: 8:49 Arrival Date: 08/21/2019 Arrival Time: 0:00 Admit Source: Emergency Insurance Payor: Medicare, department Private health insurance [facility] #: [id number] Height (in.): 72.83 BSA: 2.16 (m2) Height (cm.): 185 BMI: 26.88 (kg/m2) Weight (lbs.): 202.83 Weight (kg.): 92 Lab Results Lab Result Date: 08/21/2019 Lab Result Time: 0:00 Biochemistry Name Units Result Min Max BUN mg/dl 14 --(--*-)-- 7 18 Creatinine mg/dl 1.3 --(---*)-- 0.6 1.3 CBC Name Units Result Min Max Hemoglobin g/dl 12.6 -*(----)-- 13.5 17.5 Procedure Procedure Types Cath Procedure Diagnostic Procedure LHC LHC w/Coronaries FFR/IVUS FFR Initial Sedation Charges Moderate Sedation up to 15 minutes PCI Procedure Coronary Stent Coronary Stent Initial Procedure Description Procedure Date Procedure Date: 08/21/2019 Procedure Start Time: 14:19 Procedure End Time: 14:36 Procedure Staff Name Function Noman Hdz MD Performing Physician Yanira Coulter RT Monitor Sary Garrett RT Scrub Alana Vásquez RN Nurse Procedure Data Cath Procedure Fluoroscopy Diagnostic fluoroscopy Total fluoroscopy Time: 2.5 time: 2.5 min min Diagnostic fluoroscopy Total fluoroscopy dose: 885 dose: 885 mGy mGy Contrast Material Contrast Material Type Amount (ml) Isovue 300 65 Entry Location Entry Primary Successful Side Size Upsize Upsize Entry Closure Succes sful Closure Location (Fr) 1 (Fr) 2 (Fr) Remarks Device Remarks Femoral Right 5 Fr Exoseal artery Estimated blood loss: 10 ml Diagnostic catheters Device Type Used For End Catheter Placement MULTIPACK Pigtail 5 Fr Procedure catheter MULTIPACK JL 4.0 5Fr Procedure catheter MULTIPACK 3DRC 5Fr Procedure catheter Procedure Complications No complications Procedure Medications Medication Administration Route Dosage 0.9% NaCl I.V. 100 ml/hr Oxygen etCO2 Nasal cannula 2 l/min Lidocaine 2% added to field 20 Heparin Flush Bag added to field 2 bags (1000units/500ml NS) Versed I.V. 2 mg Fentanyl I.V. 50 mcg Heparin Bolus I.V. 4000 units Integrilin (Bolus I.V. 8.5 ml 2mg/ml) Integrilin (Bolus wasted 1.5 ml 2mg/ml) Plavix P.O. 600 mg Versed I.V. 2 mg Fentanyl I.V. 50 mcg Hemodynamics Rest BSA: 2.16 (m2) O2 Consumption: Estimated: 293.76 (ml/min) O2 Consumption indexed : Estimated:136 (ml/min/m) Pre Cath Intra NCS Post Cath Vital Signs Time Heart Resp SPO2 etCO2 NIBP (mmHg) Rhythm Pain Sedation Rate (ipm) (%) (mmHg) Status Level (bpm) 13:33:29 86 14 98 29 132/71(94) NSR 0 (11) 10(A) , No pain 13:37:45 74 12 97 12.8 142/74(103) NSR 0 (11) 10(A) , No pain 13:42:05 76 13 98 29 154/75(104) NSR 0 (11) 10(A) , No pain 13:46:26 77 15 97 22.6 134/68(89) NSR 0 (11) 10(A) , No pain 13:50:44 78 19 99 23.3 135/72(107) NSR 0 (11) 10(A) , No pain 13:55:04 71 9 100 14.3 142/64(105) NSR 0 (11) 10(A) , No pain 13:59:20 81 11 95 24.7 128/69(92) NSR 0 (11) 10(A) , No pain 14:03:34 83 12 97 30.6 130/65(90) NSR 0 (11) 10(A) , No pain 14:07:54 80 17 99 30.9 137/65(106) NSR 0 (11) 10(A) , No pain 14:12:14 72 11 100 28 126/70(101) NSR 0 (11) 10(A) , No pain 14:16:28 76 15 99 16 146/73(110) NSR 0 (11) 9(A) , No pain 14:21:23 77 16 100 21.8 161/75(97) NSR 0 (11) 9(A) , No pain 14:25:43 76 15 100 11.3 156/83(112) NSR 0 (11) 9(A) , No pain 14:30:07 73 17 100 12.8 150/77(120) NSR 0 (11) 9(A) , No pain 14:34:29 72 10 100 17.3 152/81(134) NSR 0 (11) 10(A) , No pain Medications Time Medication Route Dose Verified Delivered Reason Notes Effectiveness by by 13:26:10 0.9% NaCl I.V. 100 Noman Alana used for ml/hr Wilder Vásquez water quality tester 13:26:17 Oxygen etCO2 2 Noman Alana used for Nasal l/min Wilder Vásquez procedure cannula RN 13:26:22 Lidocaine 2% added 20ml Noman Tineo for local to vial Wilder Hdz MD anesthetic field 13:26:27 Heparin Flush added 2 Noman Noman used for Bag to bags Wilder Hdz MD procedure (1000units/500ml field NS) 14:15:13 Versed I.V. 2 mg Noman Alana for sedation Wilder Vásquez RN 14:15:18 Fentanyl I.V. 50 Noman Alana for sedation mcg Wilder Vásquez RN 14:16:33 Versed I.V. 2 mg Noman Alana for sedation Wilder Vásquez RN 14:16:44 Fentanyl I.V. 50 Noman Alana for sedation mcg Wilder Vásquez RN 14:29:21 Heparin Bolus I.V. 4000 Noman Alana for verif ied units Wilder Vásquez anticoagulation with Dr. CHERELLE Hdz 14:29:36 Integrilin I.V. 8.5 Noman Alana for (Bolus 2mg/ml) ml Wilder Vásquez antiplatelet RN therapy 14:29:51 Integrilin wasted 1.5 Noman Alana for (Bolus 2mg/ml) ml Wilder Vásquez antiplatelet RN therapy 14:29:59 Plavix P.O. 600 Noman Alana for mg Wilder Vásquez antiplatelet RN therapy Procedure Log Time Note 13:08:17 Signed procedure consent form obtained from patient. 13:08:19 Procedure Status Urgent Heart Cath (IP). 13:08:20 Time tracking: Regular hours (M-F 7:00 - 5:00) 13:08:24 Plan of Care:Hemodynamics will remain stable., Cardiac rhythm will remain stable., Comfort level will be maintained., Respiratory function will remain adequate., Patient/ family verbilizes understanding of procedure., Procedure tolerated without complication., Recovers from procedure without complications.. 13:16:04 Sary Garrett RT(R) sent for patient. Start room use. 13:24:39 Patient received from ED to CCL 2 Alert and oriented. Tansferred to table in Supine position. 13:24:40 Warm blankets applied, and sylwia hugger turned on for patient comfort. 13:24:42 Correct patient and procedure confirmed by team. 13:24:43 ECG and BP/O2 sat monitors applied to patient. 13:24:49 H&P Date Dictated: 08/21/2019 Emergent; H&P N/A. 13:24:52 Pre-procedure instructions explained to patient. 13:24:56 Family in waiting room. 13:24:58 Patient NPO since Midnight. 13:25:51 Patient allergic to Other allergysee chrt 13:26:10 0.9% NaCl 100 ml/hr I.V. was administered by Alana Vásquez RN; used for procedure; Verbal order read back and verified. 13:26:17 Oxygen 2 l/min etCO2 Nasal cannula was administered by Alana Vásquez RN; used for procedure; Verbal order read back and verified. 13:26:17 Is the patient allergic to Iodine/contrast media? No. 13:26:22 Lidocaine 2% 20ml vial added to field was administered by Noman Hdz MD; for local anesthetic; Verbal order read back and verified. 13:26:27 Heparin Flush Bag (1000units/500ml NS) 2 bags added to field was administered by Noman Hdz MD; used for procedure; Verbal order read back and verified. 13:26:56 Is patient on blood thinner?No 13:27:08 ACC The patient was administered the following blood thiners within the last 24 hours: ACCAspirin 13:27:14 Patient diabetic? No. 13:27:24 Snore? Yes 13:32:27 Vital chart was started 13:39:36 Sleep apnea? No 13:39:56 Patient pain scale 0/10 ?. 13:40:02 Lab results completed and on chart. 13:40:40 Lab Result : Creatinine 1.3 mg/dl 13:40:40 Lab Result : BUN 14 mg/dl 13:40:40 Lab Result : Hemoglobin 12.6 g/dl 13:40:45 Alarms reviewed by R. N. 13:40:46 Sharps counted by scrub and verified by R.N. 13:40:49 Physician paged 13:40:50 Physician arrived 13:40:51 --------ALL STOP TIME OUT------ 13:40:53 Final Timeout: patient, procedure, and site verified with staff and physician. All members of the team are in agreement. 13:40:57 Right groin site verified by team. 13:41:02 Fire Safety Assessment: A--An alcohol-based skin anteseptic being used preoperatively., C--Open oxygen or nitrous oxide is being used. 13:41:09 Physical assessment completed. ASA score P 2 - A patient with mild systemic disease as per Noman Hdz MD. 13:41:27 3a) 45-59 Moderately reduced kidney function. 13:41:57 Maximum allowable contrast dose (3.7 X eGFR X 0.75)158 ml. 13:42:02 Sedation plan: IV Moderate Sedation Medication:Versed, Fentanyl 13:42:09 Use device set Femoral Dx 13:42:10 ACIST Syringe (02541) opened to sterile field. 13:42:10 Bag Decanter (2002S) opened to sterile field. 13:42:12 Medline Cath Pack ([id number]) opened to sterile field. 13:42:13 ACIST Hand Control (40586) opened to sterile field. 13:42:14 ACIST Manifold (80107) opened to sterile field. 13:42:15 DIAGNOSTIC Multipack 5Fr catheter set (ON0359) opened to sterile field. 13:42:16 Tegaderm 4 x 4 (1626W) opened to sterile field. 13:42:19 SHEATH 5FR [place] (MBV441) opened to sterile field. 13:42:20 EMERALD Guide Wire (102-878) opened to sterile field. 13:45:09 Patient Height : 72.83 inches 13:45:14 Patient Weight : 202.83 lbs 13:45:17 Admit Source: Emergency department 13:45:22 Arrival Date: 08/21/2019 12:00:00 AM 13:45:48 Insurance Payor : Private health insurance, Medicare 14:14:48 Procedure started. 14:14:48 Full Disclosure recording started 14:15:13 Versed 2 mg I.V. was administered by Alana Vásquez RN; for sedation; Verbal order read back and verified. 14:15:18 Fentanyl 50 mcg I.V. was administered by Alana Vásquez RN; for sedation; Verbal order read back and verified. 14:16:33 Versed 2 mg I.V. was administered by Alana Vásquez RN; for sedation; Verbal order read back and verified. 14:16:44 Fentanyl 50 mcg I.V. was administered by Alana Vásquez RN; for sedation; Verbal order read back and verified. 14:19:38 Local anesthetic to right femoral artery with Lidocaine 2% by Noman Hdz MD.INITIAL ACCESS ONLY 14:19:49 A 5 Fr sheath was inserted into the Right Femoral artery 14:19:56 J wire advanced. 14:20:32 A MULTIPACK Pigtail 5 Fr catheter was advanced over the wire and used for Procedure. 14:20:56 EF : 60 % 14:21:05 Catheter removed. 14:21:16 A MULTIPACK JL 4.0 5Fr catheter was advanced over the wire and used for Procedure. 14:21:44 LCA angiography performed. 14:22:25 Aortic Root visualized 14:22:35 A MULTIPACK 3DRC 5Fr catheter was advanced over the wire and used for Procedure. 14:22:40 RCA angiography performed. 14:23:26 Catheter removed. 14:23:37 ACCDominant side:Right 14:25:06 [place] Verrata Plus pressure wire (96336H) opened to sterile field. 14:25:09 INFLATOR Merit BasixCompak (RX1012) opened to sterile field. 14:25:37 GUIDE 5FR EBU 3.5 catheter (ON7GES38) opened to sterile field. 14:26:09 5 Fr EBU3.5 guide catheter was inserted over the wire 14:26:50 FFR/IFR wire advanced. 14:26:52 Wire advanced across lesion. 14:27:08 Baseline FFR .77. 14:27:22 mLAD lesion measured at .77 with IFR 14:29:21 Heparin Bolus 4000 units I.V. was administered by Alana Vásquez RN; for anticoagulation; verified with Dr. Hdz Verbal order read back and verified. 14:29:36 Integrilin (Bolus 2mg/ml) 8.5 ml I.V. was administered by Alana Vásquez RN; for antiplatelet therapy; Verbal order read back and verified. 14:29:51 Integrilin (Bolus 2mg/ml) 1.5 ml wasted was administered by Alana Vásquez RN; for antiplatelet therapy; Verbal order read back and verified. 14:29:59 Plavix 600 mg P.O. was administered by Alana Vásquez RN; for antiplatelet therapy; Verbal order read back and verified. 14:30:00 Place stent Inflation Number: 1 A COBRA RX 3.5 X 18 Stent was prepped and advanced across the Mid LAD 71. The stent was deployed at 15 ALBERTINA for 0:06 (min:sec) . 14:32:53 pre IFR reading .77\IFR post reading .95 14:33:03 ACT drawn and resulted at 241 seconds. (normal therapeutic range 180-240 seconds). 14:33:07 Wire removed. 14:33:08 Guide catheter removed. 14:34: Sheath removed intact; hemostasis achieved with Exoseal to the Right Femoral artery. 14:34:05 EXOSEAL 5Fr (EX500) opened to sterile field. 14:34:08 Procedure ended.(Physican Out) 14:34:21 Fluoroscopy time 02.50 minutes. 14:: Fluoroscopy dose: 885 mGy 14:: Flurop Dose total: 885 14:: Dose Area Product 82769 mGy/cm. 14:34:52 Contrast amount:Isovue 300 65ml. 14:34:55 Maximum allowable dose exceeded? No. 14:34:57 Sharps counted by scrub and verified by R.N. 14:35:02 Insertion/operative site no bleeding no hematoma. 14:35:10 Post-procedure physical assessment completed. ASA score P 2 - A patient with mild systemic disease as per Noman Hdz MD. 14:35:17 Estimated blood loss: 10 ml 14:35:19 Post procedure instruction explained to patient.Patient verbalizes understanding. 14:36:02 Procedure type changed to Cath procedure, Diagnostic procedure, LHC, C w/Coronaries, FFR/IVUS, FFR Initial, Sedation Charges, Moderate Sedation up to 15 minutes, PCI procedure, Coronary Stent, Coronary Stent Initial 14:36:20 Procedure and supply charges have been captured, reviewed, submitted and are correct. 14:36:26 Procedure Complication : No complications 14:36:28 Vital chart was stopped 14:36:34 [facility] Findings: MVD- PCI performed (see procedure note) 14:36:42 See physician's report for complete and final results. 14:36:44 Report given to Pre/Post Procedure Room. 14:36:49 Patient transfered to Pre/Post Procedure Room with Stretcher. 14:36:52 Procedure ended. 14:36:52 Full Disclosure recording stopped 14:37:17 ACC-PCI Only Patient was given prescriptions, or instructed by Noman Hdz MD to start/continue the following medications upon discharge: Plavix 14:37:20 End room use (Document Last) Intervention Summary Intervention Notes Time ActionType Lesion and Equipment Action# Pressure Duration Attributes Used 14:30:00 Place stent Mid LAD COBRA RX 1 15 00:06 3.5 X 18 Stent Device Usage Item Name Manufacture Quantity Catalog Hospital Part Current Minimal Lot# / Number Charge Number Stock Stock Serial# Code ACIST Syringe Acist 1 49225 994845 330291 464739 20 (00273) Medical Systems Inc Bag Decanter Microtek 1 2001S 728673 75119 373437 5 (2001S) Medical Inc. Medline Cath Medline 1 [id number] 464923 86257 756263 5 Pack ([id number]) ACIST Hand Acist 1 50225 745656 754945 853340 5 Control Medical (51327) Systems Inc ACIST Manifold Acist 1 32799 845103 809648 433770 5 (32385) Medical Systems Inc DIAGNOSTIC Cardinal 1 RH6058 987805 01960 838101 30 Multipack 5Fr Health catheter set (CX4761) Tegaderm 4 x 4 3M 1 1626W 037985 544217 500115 5 (1626W) SHEATH 5FR Terumo 1 GPT606 606811 925731 751325 [address] [place] (YWJ155) EMERALD Guide Cardinal 1 502-455 997097 440608 679534 5 Wire (502-455) Health MULTIPACK Cardinal 1 202068 5 Pigtail 5 Fr Health catheter MULTIPACK JL Cardinal 1 435156 5 4.0 5Fr Health catheter MULTIPACK 3DRC Cardinal 1 323419 5 5Fr catheter Health [place] 1 79584P 917625 554338474 542022 5 Verrata Plus pressure wire (06432F) INFLATOR Merit Merit 1 WJ1707 208115 576217 286262 15 [facility] [employer] Medical (VS6074) GUIDE 5FR EBU Medtronic 1 [id number] 855614 584559 178333 1 3.5 catheter ([id number]) COBRA RX 3.5 X Celonova 1 279-22-17056 131387 052015378 81534774 6 [id number] 18 stent Biosciences (650-30-80685) EXOSEAL 5Fr Cardinal 1 EX500 586610 383303 664655 10 (EX500) Health Signature Audit [place] Stage Time Signature Unsigned Intra-Procedure 08/21/2019 Yanira Coulter 2:39:28 PM RT(R) Intra-Procedure 08/21/2019 Alana Vásquez 2:40:02 PM RN Intra-Procedure 08/21/2019 Noman Hdz 2:40:27 PM MD Signatures Performing Physician : Signature : Noman Hdz MD Date : Time : Monitor : Yanira Coulter Signature : RT Date : Time : Nurse : Alana Vásquez RN Signature : Date : Time : [facility] [address] [place] [address]
[~2019-08-21 08:49] MED LIST changes: +HYDROCODONE-APA1 TAB PO
[2019-08-21 08:51] VITALS: Ht 185.4 cm; Wt 92.3 kg
[2019-08-21] MEDS ORDERED: ASPIRIN325 MG PO (08:54)
[2019-08-21 09:31] LABS: ALBUMIN 3.4 g/dL (3.4-5.0); ALKALINE PHOSPHATASE 93 U/L (46-116); ALT (SGPT) 13 U/L (10-68); BILIRUBIN - TOTAL 0.73 mg/dL (0.2-1.3); CALC OSMOLALITY 285 mosm/kg (275-300); CALCIUM 10.6 mg/dL (8.5-10.1); CARBON DIOXIDE 23.8 mmol/L (21.0-32.0); CHLORIDE - SERUM 108 mmol/L (98-107); CREATININE - SERUM 1.3 mg/dL (0.6-1.3); GLUCOSE 95 mg/dL (74-106); POTASSIUM - SERUM 3.9 mmol/L (3.5-5.1); PROTEIN - SERUM 6.6 g/dL (6.4-8.2); SODIUM 143 mmol/L (136-145); UREA NITROGEN 14 mg/dL (7-18); eGFR NON AFRICAN AMERICAN 57 mL/min (90-120)
[2019-08-21 09:37] LABS: APTT 26.9 SECONDS (22.8-39.4); INR 1.03 (0.85-1.17)
[2019-08-21 09:40] LABS: BASOPHILS 0.3 % (0-2); EOSINOPHILS 8.2 % (0-7); HEMATOCRIT 37.3 % (42.0-54.0); HEMOGLOBIN 12.6 g/dL (13.5-17.5); IMMATURE GRANULOCYTES 0.1 % (0-5); LYMPHOCYTES 19.3 % (15-50); MCH 30.8 pg (26.0-34.0); MCHC 33.8 g/dL (31.0-37.0); MCV 91.2 fL (80.0-100.0); MEAN PLATELET VOLUME 8.9 fL (7.4-10.4); MONOCYTES 9.6 % (2-11); NEUTROPHILS 62.5 % (40-80); RBC 4.09 10x6/uL (4.20-6.10); RDW 13.3 % (11.5-14.5); WBC 6.7 10x3/uL (4.8-10.8)
[2019-08-21 09:42] LABS: PLATELET COUNT 207 10x3/uL (130-400)
[2019-08-21 09:43] LABS: CKMB 0.7 U/L (0.0-3.6); CREATINE KINASE 47 UL (21-232); MAGNESIUM - SERUM 2.1 mg/dL (1.8-2.4)
[2019-08-21 09:44] LABS: TROPONIN-I < 0.017 ng/mL (0.000-0.060)
[2019-08-21 13:46] VITALS: BP 142/64
--- NOTE | 2019-08-21 14:38 | CN ---
PATIENT NAME:SONYA LYNCH MEDICAL RECORD: [id number] : 44 LOCATION:[facility] ADMIT DATE: ACCOUNT: [id number] CONSULTING PHYSICIAN: FREDERICK MARTIN MD REFERRING PHYSICIAN: FREDERICK MARTIN MD DATE OF CONSULTATION: 08/21/2019 DIAGNOSES: 1. Unstable angina class IV. 2. Coronary artery disease. 3. Previous percutaneous transluminal coronary angioplasty stent. 4. Hypertension. 5. Hyperlipidemia. 6. Family history of coronary artery disease. HISTORY OF PRESENT ILLNESS: Mr. Lynch was seen in our clinic yesterday with increasing anginal symptomatology, had the addition of a nitropatch to his medical regimen. He has continued to have increasing angina. He is now having rest pain and class IV anginal symptomatology. Last cardiac intervention in May of 2017. The chest pain is a typical anginal chest discomfort with a dull aching pressure sensation in the anterior chest just like that of his previous angina prior to stenting. It is as well associated with shortness of breath and dyspnea on exertion. His blood pressure was well controlled. His heart rate was controlled in the 50s and 60s, on the losartan. Hyperlipidemia is controlled on Crestor. We added nitro patch to his medical regimen. He has continued to have progression of the angina despite that. FAMILY HISTORY: Positive for coronary artery disease and hypertension. SOCIAL HISTORY: He is a nonsmoker, nondrinker, lives in [place] area, is retired. REVIEW OF SYSTEMS: The patient reports easy bruising but reports no swollen glands. The patient reports no fever, no night sweats, no significant weight gain, no significant weight loss. No significant exercise tolerance. The patient reports no dry eyes, no irritation, no vision change. Patient reports no difficulty hearing and no ear pain. Patient reports no frequent nose bleeds or nose and sinus problems. Patient reports no arm pain on exertion. No shortness of breath while lying down. No history of heart murmur. Patient reports no cough, no wheezing or coughing up blood. Patient reports no abdominal pain, no vomiting. Normal appetite. No diarrhea and not vomiting blood. No nausea and no constipation. Patient reports no incontinence. No difficulty urinating. No hematuria. No increased frequency. Patient reports no muscle aches. No weakness, no arthralgias, no back pain. No swelling of the extremities. Patient reports no abnormal mole, no jaundice, no rashes. Reports no loss of consciousness. No weakness and no numbness. No seizures, dizziness, or headaches. The patient reports no depression, no sleep disturbance, feeling safe in a relationship and no alcohol abuse. Patient reports on fatigue. Reports no runny nose or sinus pressure. No itching, no hives, and no frequent sneezing. PHYSICAL EXAMINATION: CONSTITUTIONAL/GENERAL APPEARANCE: Well nourished, well developed, appears stated age. Level of distress, comfortable. EYES: Lids and conjunctivae noninjected. No discharge. No pallor. CONSULT REPORT [id number] SONYA LYNCH ENT: Lips within normal limit. No cyanosis. No pallor. NECK: Carotid arteries, bilateral normal upstroke. No bruits. No thrills. No jugular venous pressure or distention. CERVICAL LYMPH NODES: Nontender. Nonenlarged. THYROID: Not enlarged. No nodules. CARDIOVASCULAR: Precordial exam, nondisplaced. No heaves or pericardial thrills. Rate and rhythm, regular. Heart sounds, normal S1, normal S2. No S3, no gallop, no rub. Systolic murmur, not heard. Diastolic murmur, not heard. RESPIRATORY: Respiratory effort, unlabored. Normal curvature. No thoracic deformity. No chest wall tenderness. Percussion, resonant. Auscultation, clear. No wheezes, no rales, no rhonchi. ABDOMEN: Soft, nondistended, nontender. No abdominal pain, no vomiting and normal appetite. MUSCULOSKELETAL: No joint tenderness, normal gait, normal tone. SKIN: Warm and dry. OVERALL IMPRESSION: Unstable angina class IV in a patient with a past history of coronary artery disease, hypertension, hyperlipidemia, family history of coronary artery disease, on optimal medical management. We will proceed with coronary angiography. Further care depends upon findings of the angiography. TRANSINT:[id number] Voice Confirmation ID: [id number] DOCUMENT ID: [id number] FREDERICK MARTIN MD at 1438 CC: [id number] DICTATION DATE: 08/21/19 1214 JALOUSIES INSTALLER: 08/21/19 1303 [facility] [address] [place] [address]
[2019-08-21] MEDS ORDERED: PLAVIX75 MG PO (14:58)
--- NOTE | 2019-08-21 15:17 | NUR ---
PT IS ALERT, DENIES ANY C/O. DRESSING TO RIGHT GROIN IS SOFT AND NONTENDER. PEDAL PULSES PALPABLE. VSS. MULTIPLE FAMILY MEMBERS AT BEDSIDE. CALL LIGHT IN REACH. HOB IS FLAT, PT INSTRUCTED TO KEEP HEAD FLAT TO PILLOW AND RIGHT LEG STRAIGHT AND PT VERBALIZES UNDERSTANDING.
--- NOTE | 2019-08-21 15:59 | NUR ---
1530 HOB IS FLAT, DRESSING CDI, PEDAL PULSES PAPABLE. VSS, PT IS ALERT AND DENIES ANY C/O.
--- NOTE | 2019-08-21 16:12 | NUR ---
DRESSING CDI,PEDAL PULSES PALPABLE. VSS. CHOCOLATE PUDDING SERVED PER PT REQUEST. FAMILY AT BEDSIDE.
--- NOTE | 2019-08-21 16:45 | NUR ---
DRESSING IS CDI TO RIGHT GROIN, AREA IS SOFT AND NONTENDER. NSR, RATE IS 77. DENIES ANY C/O CHEST PAIN. BP IS 116/56. HOB IS FLAT. PRESCRIPTION FOR PRAVACHOL DISCUSSED WITH PT AND , PT STATES CANNOT TAKE STATINS DUE TO MUSCLE ACHES/LEG CRAMPS. DR MARTIN NOTIFIED, NO NEW ORDERS RECIEVED.
--- NOTE | 2019-08-21 17:43 | NUR ---
HOB ELEVATED 30 DEGREES, SANDWICH AND PO FLUIDS AT BEDSIDE. PT IS ALERT AND DENIES ANY C/O. RESP WITH EASE ON ROOM AIR. DRESSING IS CDI, PEDAL PULSES PALPABLE.
[2019-08-21] MEDS ORDERED: CRESTOR10 MG PO (18:08)
--- NOTE | 2019-08-21 18:19 | NUR ---
1800 HOB FULLY ELEVATED, DRESSING REMAINS CDI RIGHT GROIN, PEDAL PULSES PALPABLE. PT IS ALERT AND DENIES ANY C/O. HAS DWAYNE 100% OF SANDWICH.
--- NOTE | 2019-08-21 18:20 | NUR ---
DC INSTRUCTIONS REVIEWED WITH PT WHO VERBALIZES UNDERSTANDING. REVIEWING PT'S MEDICATIONS AND HE STATES HE IS TAKING CRESTOR ON MONDAYS, WEDNESDAYS AND FRIDAYS, MED ADDED TO HIS MED REC. IV DC'D WITH CATH INTACT AND PT IS DRESSING FOR DC WITH ASSIST. PT AND VERBALIZE UNDERSTANDING OF DISCHARGE INSTRUCTIONS AND VERBALIZE PT TO START PALVIX TOMORROW. PT HAS PLAVIX PRESCRIPTION.
--- NOTE | 2019-08-21 18:40 | NUR ---
PT HAS DRESSED FOR DC TO HOME. IS ALERT AND DENIES ANY C/O. PT ESCORTED TO PRIVATE AUTO VIA WC BY NURSE WITH DAUGHTER DRIVING HIM HOME. PT HAS ALL PERSONAL BELONGINGS AND DC INSTRUCTIONS AT TIME OF DISCHARGE.
--- NOTE | 2019-08-24 11:10 | OP ---
PATIENT NAME: SONYA CHARLES MEDICAL RECORD: [id number] :42 LOCATION:D.CAT ADMISSION DATE: SURGEON: FREDERICK MARTIN MD DATE OF OPERATION: 08/21/2019 PROCEDURES: 1. PTCA stent LAD. 2. IFR. 3. Left heart catheterization. 4. Selective coronary angiography. 5. Left ventriculogram. INDICATION: Angina and coronary artery disease. PROCEDURE IN DETAIL: After informed consent was obtained and after a detailed description of the risks, benefits as well as alternative therapies, the patient elected to proceed with angiogram and angioplasty. The right femoral area was prepped and draped in normal sterile fashion. Right femoral artery was cannulated via modified Seldinger technique with placement of 6-Occitan sheath. All catheters exchanged through this sheath. FINDINGS: Left ventriculogram was performed in standard 30-degree DAILEY view, reveals good cardiac wall motion throughout all segments. Overall ejection fraction estimated at 70%. SELECTIVE CORONARY ANGIOGRAPHY: 1. Left main has no significant angiographic disease. 2. Left anterior descending has 70% stenosis in the proximal vessel. IFR is abnormal with less than 0.8. 3. Left circumflex has moderate irregularities, but no flow-limiting stenosis. 4. Right coronary has moderate irregularities, but no flow-limiting stenosis. PTCA STENT OF THE LAD: The stent used was 3.5 x 18 mm Cobra taken to 17 atmospheres. Result was 0% residual stenosis and INR was normal after the stenting at 0.96. OVERALL IMPRESSION: Successful percutaneous transluminal angioplasty stent of the left anterior descending going from 70% initial stenosis with an abnormal IFR to 0% residual stenosis with normalization of the IFR after stenting. TRANSINT:[id number] Voice Confirmation ID: [id number] DOCUMENT ID: [id number] FREDERICK MARTIN MD at 1110 CC: [id number] DICTATION DATE: 08/21/19 143 MANAGER QUALITY COMPLIANCE: 08/21/19 2146 DEP CLI 08/21/19 [place] [id number]
== END 2019-08-21 18:40 | disposition home or self-care (01) ==
LOC: D.CATH 08:49 → D.ER 08:49 → EDSTATUS 11:48 → D.CATH 18:40
PROVIDERS: Family Medicine; ATTEND Internal Medicine Interventional Cardiology
DX: I25.110 Atherosclerotic heart disease of native coronary artery with unstable angina pectoris (principal); I10 Essential (primary) hypertension; E78.5 Hyperlipidemia, unspecified
CPT/HCPCS: C9600; 93458; 93571

== ENCOUNTER → 2021-01-11 11:35 | Day surgery (SDC) | payer MEDICARE, BC ==
[~2021-01-11] VITALS: Ht 185.4 cm; Wt 96.3 kg
--- NOTE | ~2021-01-11 | HEMODYNAMI ---
PATIENT:SONYA CHARLES MEDICAL RECORD: [id number] : 44 LOCATION:[facility] ADMISSION DATE: 01/11/21 Generatedon:114:49 Patient name: SONYA CHARLES Patient #: [id number] SSN: [id number] : 1940 Date of study: 01/11/2021 Page: Of Hemodynamic Procedure Report Patient Data Patient Demographics Procedure consent was obtained First Name: SONYA Gender: Male Last Name: ARACELI : 1940 Middle Initial: D Age: 80 year(s) Patient #: [id number] Race: SSN: [id number] Additional ID: [id number] Contact details Address: [address] [place] [address] COURT State: [place] City: [place] Zip code: [address] Past Medical History Allergies Allergen Reaction Date Comments Reported Other allergy 08/21/2019 see chrt Other allergy 01/11/2021 statins, prlosec,prevacid, omeprazole, nexium, mobic Admission Admission Data Admission Date: 01/11/2021 Admission Time: 11:35 Arrival Date: 01/11/2021 Arrival Time: 13:00 Admit Source: Other Insurance Payor: Medicare [facility] #: [id number] Height (in.): 72.83 BSA: 2.2 (m2) Height (cm.): 185 BMI: 28.05 (kg/m2) Weight (lbs.): 211.64 Weight (kg.): 96 Lab Results Lab Result Date: 01/11/2021 Lab Result Time: 0:00 Biochemistry Name Units Result Min Max BUN mg/dl 16 --(---*)-- 7 18 Creatinine mg/dl 1.1 --(--*-)-- 0.6 1.3 eGFR ml/min 69 *-(----)-- 90 120 NONAFRICAN CBC Name Units Result Min Max Hematocrit % 43 --(*---)-- 42 54 Hemoglobin g/dl 14.5 --(*---)-- 13.5 17.5 Procedure Procedure Types Cath Procedure Diagnostic Procedure [facility] w/Coronaries Sedation Charges Moderate Sedation 25-39 minutes Procedure Description Procedure Date Procedure Date: 01/11/2021 Procedure Start Time: 14:33 Procedure End Time: 14:48 Procedure Staff Name Function Momo Hines MD Performing Physician Janell Sierra RT Monitor Mary Narayanan RT Scrub Bogdan Gresham RN Nurse Procedure Data Cath Procedure Fluoroscopy Diagnostic fluoroscopy Total fluoroscopy Time: 1.6 time: 1.6 min min Diagnostic fluoroscopy Total fluoroscopy dose: 364 dose: 364 mGy mGy Contrast Material Contrast Material Type Amount (ml) Isovue 370 60 Entry Location Entry Primary Successful Side Size Upsize Upsize Entry Closure Succes sful Closure Location (Fr) 1 (Fr) 2 (Fr) Remarks Device Remarks Femoral Right 5 Fr Exoseal artery Estimated blood loss: 5 ml Diagnostic catheters Device Type Used For End Catheter Placement MULTIPACK JL 4.0 5Fr Procedure catheter MULTIPACK 3DRC 5Fr Procedure catheter MULTIPACK Pigtail 5 Fr Procedure catheter Procedure Complications No complications Procedure Medications Medication Administration Route Dosage Oxygen etCO2 Nasal cannula 2 l/min Lidocaine 2% added to field 20 Heparin Flush Bag added to field 2 bags (1000units/500ml NS) 0.9% NaCl I.V. 100 ml/hr Versed I.V. 1 mg Fentanyl I.V. 50 mcg Versed I.V. 1 mg Fentanyl I.V. 50 mcg Versed I.V. 1 mg Versed I.V. 1 mg Hemodynamics Rest BSA: 2.2 (m2) HGB: 14.5 (g/dl) O2 Consumption: Estimated: 238.5 (ml/min) O2 Cons umption indexed: Estimated:108.41 (ml/min/m) Heart Rate: 54 (bpm) Pressure Samples Time Site Value (mmHg) Purpose Heart Use Rate(bpm) 14:41 LV 154/28,64 Snapshot 62 14:42 AO 136/60(90) Pullback 60 14:42 LV 171/0,11 Pullback 60 Gradients Valve Time Site 1 Site 2 Mean SEP/DFP Peak To Heart Use (mmHg) (sec/min) Peak Rate (mmHg) (bpm) Aortic 14:42 LV AO 15 22 35 60 171/0,11 136/60(90) Calculations Valve P-P Mean Valve Index Valve Source Name Gradient Area Flow (cm2) Aortic 35 15 35 15 Snapshots Pre Cath Intra NCS Post Cath Vital Signs Time Heart Resp SPO2 etCO2 NIBP (mmHg) Rhythm Pain Sedation Rate (ipm) (%) (mmHg) Status Level (bpm) 13:58:59 62 14 99 0 151/79(101) NSR 0 (11) 10(A) , No pain 14:03:21 54 14 99 35.3 133/69(97) NSR 0 (11) 10(A) , No pain 14:07:45 54 10 99 20.3 141/66(107) NSR 0 (11) 10(A) , No pain 14:12:09 54 12 100 38.3 144/67(105) NSR 0 (11) 10(A) , No pain 14:16:29 52 12 99 16.5 131/69(87) NSR 0 (11) 10(A) , No pain 14:20:48 54 12 98 35.3 138/70(95) NSR 0 (11) 10(A) , No pain 14:25:08 55 12 98 39.1 123/64(88) NSR 0 (11) 10(A) , No pain 14:29:28 53 12 97 25.5 134/62(109) NSR 0 (11) 9(A) , No pain 14:33:50 52 15 95 35.3 124/63(101) NSR 0 (11) 9(A) , No pain 14:38:10 59 11 97 34.5 138/68(112) NSR 0 (11) 9(A) , No pain 14:42:30 58 10 96 31.5 134/62(93) NSR 0 (11) 10(A) , No pain 14:46:52 59 12 97 0 138/65(93) NSR 0 (11) 10(A) , No pain Medications Time Medication Route Dose Verified Delivered Reason Notes Eff ectiveness by by 13:58:08 Oxygen etCO2 2 Momo Buffie used for Nasal l/min Donny Gresham curb worker cannula 13:58:16 Lidocaine 2% added 20ml Momo Momo for local to vial Donny Hines MD anesthetic field 13:58:22 Heparin Flush added 2 Momo Momo used for Bag to bags Donny Hines MD procedure (1000units/500ml field NS) 13:58:32 0.9% NaCl I.V. 100 Momo Buffie Per ml/hr Donny Gresham RN physician 14:20:45 Versed I.V. 1 mg Momo Buffie for Donny Gresham RN sedation 14:20:51 Fentanyl I.V. 50 Momo Buffie for mcg Donny Gresham RN sedation 14:25:09 Versed I.V. 1 mg Momo Buffie for Donny Gresham RN sedation 14:25:13 Fentanyl I.V. 50 Momo Buffie for mcg Donny Gresham RN sedation 14:30:57 Versed I.V. 1 mg Momo Buffie for Donny Gresham RN sedation 14:35:33 Versed I.V. 1 mg Momo Buffie for Donny Gresham RN sedation Procedure Log Time Note 13:03:54 Diagnostic Cath Status : Elective 13:04:20 Informed consent obtained and on chart 13:05:26 Arrival Date: 01/11/2021 1:00:00 PM 13:05:56 Admit Source: Other 13:06:02 Insurance Payor : Medicare 13:07:26 Patient Height : 72.83 inches 13:07:29 Patient Weight : 211.64 lbs 13:07:36 Procedure Status Elective Heart Cath (OP). 13:15:42 ACC Patient presents with Stable Angina CCS Anginal Class 2--Slight limitation of ordinary activity. 13:15:48 Time tracking: Regular hours (M-F 7:00 - 5:00) 13:15:54 Plan of Care:Hemodynamics will remain stable., Cardiac rhythm will remain stable., Comfort level will be maintained., Respiratory function will remain adequate., Patient/ family verbilizes understanding of procedure., Procedure tolerated without complication., Recovers from procedure without complications.. 13:16:08 H&P Date Dictated: 12/14/2020 Within 30 days and on chart.. 13:16:10 Pre-procedure instructions explained to patient. 13:16:11 Pre-op teaching completed and patient verbalized understanding. 13:16:12 Family unavailable. 13:16:14 Patient NPO since Midnight. 13:17:38 Patient allergic to Other allergystatins, prlosec,prevacid, omeprazole, nexium, mobic 13:19:28 Lab Result : eGFR NONAFRICAN 69 ml/min 13:19:28 Lab Result : Hemoglobin 14.5 g/dl 13:19:28 Lab Result : BUN 16 mg/dl 13:19:28 Lab Result : Creatinine 1.1 mg/dl 13:19:29 Lab Result : Hematocrit 43 % 13:21:18 Lab results completed and on chart. 13:21:34 Stress Test: yes; N/A apical, inferior 13:21:37 Risk of Mortality: 0.1 13:21:40 Risk of blood transfusion: 0.1 13:21:43 Risk of NAOMIE: 0.5 13:45:11 Mary Narayanan RT(R) sent for patient. Start room use. 13:48:52 Patient received from Pre/Post Procedure Room to CCL 1 Alert and oriented. Tansferred to table in Supine position. 13:48:54 Warm blankets applied, and sylwia hugger turned on for patient comfort. 13:48:54 Correct patient and procedure confirmed by team. 13:48:55 ECG and BP/O2 sat monitors applied to patient. 13:49:13 IV patent on arrival in left antecubital with 0.9% NaCl at KVO. 13:49:17 Alarms reviewed by R. N. 13:49:17 Sharps counted by scrub and verified by R.N. 13:49:24 Is the patient allergic to Iodine/contrast media? No. 13:49:25 Was the patient premedicated? Yes 13:49:28 Patient diabetic? No. 13:49:29 - 13:49:34 ----Pre-sedation anethsthesia assessment.---- 13:49:46 Is patient on blood thinner?Yes 13:49:52 ACC The patient was administered the following blood thiners within the last 24 hours: Good 13:49:56 Previous problem with sedation/anesthesia? No ? 13:49:57 Snore? Yes 13:57:37 Vital chart was started 13:57:38 Full Disclosure recording started 13:57:40 Baseline sample Acquired. 13:57:46 Rhythm: sinus bradycardia 13:57:52 Sleep apnea? Unknown 13:57:53 Deviated septum? No 13:57:54 Opens mouth fully? Yes 13:57:55 Sticks out tongue? Yes 13:57:58 Airway obstruction? No ? 13:58:01 Dentures? No ? 13:58:03 Pre procedure: right dorsailis pedis pulse 1+ Palpable, but thready & weak; easily obliterated 13:58:06 Patient pain scale 0/10 ?. 13:58:08 Oxygen 2 l/min etCO2 Nasal cannula was administered by Bogdan Gresham RN; used for procedure; Verbal order read back and verified. 13:58:10 Right groin area was prepped with chlora-prep and draped in sterile fashion 13:58:15 Use device set Femoral Dx 13:58:16 Lidocaine 2% 20ml vial added to field was administered by Momo Hines MD ; for local anesthetic; Verbal order read back and verified. 13:58:16 ACIST Syringe (04140) opened to sterile field. 13:58:17 Bag Decanter (2002S) opened to sterile field. 13:58:18 Medline Cath Pack ([id number]) opened to sterile field. 13:58:19 ACIST Hand Control (07357) opened to sterile field. 13:58:19 ACIST Manifold (75760) opened to sterile field. 13:58:21 DIAGNOSTIC Multipack 5Fr catheter set (MR6192) opened to sterile field. 13:58:22 Heparin Flush Bag (1000units/500ml NS) 2 bags added to field was administered by Momo Hines MD; used for procedure; Verbal order read back and verified. 13:58:22 SHEATH 5FR [place] (IAZ366) opened to sterile field. 13:58:23 EMERALD Guide Wire (084-110) opened to sterile field. 13:58:25 EXOSEAL 5Fr (EX500) opened to sterile field. 13:58:32 0.9% NaCl 100 ml/hr I.V. was administered by Bogdan Gresham RN; Per physician; Verbal order read back and verified. 14:18:38 --------ALL STOP TIME OUT------ 14:18:39 Final Timeout: patient, procedure, and site verified with staff and physician. All members of the team are in agreement. 14:18:40 Right groin site verified by team. 14:18:44 Fire Safety Assessment: A--An alcohol-based skin anteseptic being used preoperatively., C--Open oxygen or nitrous oxide is being used., D--An ESU, laser, or fiber-optic light is being used. 14:18:48 Physical assessment completed. ASA score P 2 - A patient with mild systemic disease as per Momo Hines MD. 14:18:58 2) 60-89 Mildly reduced kidney function, and other findings (as for stage 1) point to kidney disease. 14:19:01 Maximum allowable contrast dose (3.7 X eGFR X 0.75)194 ml. 14:19:07 Sedation plan: IV Moderate Sedation Medication:Versed, Fentanyl 14:20:45 Versed 1 mg I.V. was administered by Bogdan Gresham RN; for sedation; Verbal order read back and verified. 14:20:51 Fentanyl 50 mcg I.V. was administered by Bogdan Gresham RN; for sedation; Verbal order read back and verified. 14:25:09 Versed 1 mg I.V. was administered by Bogdan Gresham RN; for sedation; Verbal order read back and verified. 14:25:13 Fentanyl 50 mcg I.V. was administered by Bogdan Gresham RN; for sedation; Verbal order read back and verified. 14:30:57 Versed 1 mg I.V. was administered by Bogdan Gresham RN; for sedation; Verbal order read back and verified. 14:33:02 Procedure started. 14:33:32 Local anesthetic to right femoral artery with Lidocaine 2% by Momo gallagher MD.INITIAL ACCESS ONLY 14:35:33 Versed 1 mg I.V. was administered by Bogdan Gresham RN; for sedation; Verbal order read back and verified. 14:35:47 A 5 Fr sheath was inserted into the Right Femoral artery 14:36:11 A MULTIPACK JL 4.0 5Fr catheter was advanced over the wire and used for Procedure. 14:36:54 LCA angiography performed. 14:36:57 Injector settings: Ml/sec: 3, Volume: 6, 14:37:52 Catheter exchanged over wire. 14:38:31 A MULTIPACK 3DRC 5Fr catheter was advanced over the wire and used for Procedure. 14:39:31 RCA angiography performed. 14:39:34 Injector settings: Ml/sec: 3, Volume: 6, 14:39:45 ACCDominant side:Co-Dominant 14:39:46 Catheter exchanged over wire. 14:40:17 A MULTIPACK Pigtail 5 Fr catheter was advanced over the wire and used for Procedure. 14:41:11 LV gram done using DAILEY 14:41:54 LV hemodynamics recorded. 14:42:40 EF : 50 % 14:42:54 Catheter removed. 14:43:23 Tegaderm 4 x 4 (1626W) opened to sterile field. 14:43:33 Sheath removed intact; hemostasis achieved with Exoseal to the Right Femoral artery. 14:43:40 Fluoroscopy time 01.60 minutes. 14:43:43 Fluoroscopy dose: 364 mGy 14:43:43 Flurop Dose total: 364 14:43:49 Dose Area Product 96840 mGy/cm. 14:43:59 Contrast amount:Isovue 370 60ml. 14:44:32 Maximum allowable dose exceeded? No. 14:44:33 Sharps counted by scrub and verified by R.N. 14:45:29 Procedure ended.(Physican Out) 14:45:37 Post-op/insertion site Right Femoral artery dressed using a 4 x 4 and Tegaderm. 14:45:40 Post right femoral artery:stable, soft, clean and dry 14:45:43 Post Procedure Pulses reassessed and unchanged 14:46:16 Post procedure: right dorsailis pedis pulse 1+ Palpable, but thready & weak; easily obliterated. 14:46:24 Post-procedure physical assessment completed. ASA score P 2 - A patient with mild systemic disease as per Momo Hines MD. 14:46:27 Post procedure rhythm: unchanged. 14:46:30 Estimated blood loss: 5 ml 14:46:32 Post procedure instruction explained to patient.Patient verbalizes understanding. 14:46:32 Patient needs reinforcement of post procedure teaching. 14:47:16 Procedure type changed to Cath procedure, Diagnostic procedure, LHC, LH C w/Coronaries, Sedation Charges, Moderate Sedation 25-39 minutes 14:47:44 Procedure and supply charges have been captured, reviewed, submitted an d are correct. 14:47:47 Procedure Complication : No complications 14:47:51 [facility] Findings: mild to moderate CAD (<70%) 14:47:56 Operative report dictated upon procedure completion. 14:47:56 See physician's report for complete and final results. 14:47:59 Report given to Pre/Post Procedure Room. 14:48:02 Patient transfered to Pre/Post Procedure Room with Stretcher. 14:48:06 Procedure ended. 14:48:06 Full Disclosure recording stopped 14:48:10 End room use (Document Last) 14:48:22 End room use (Document Last) 14:48:44 End room use (Document Last) 14:49:07 Vital chart was stopped Device Usage Item Name Manufacture Quantity Catalog Hospital Part Current Minimal L ot# / Number Charge Number Stock Stock Serial# Code ACIST Acist 1 25092 364444 [id number] [id number] 20 Syringe Medical (87241) Systems Inc Bag Microtek 1 577682 30014 481551 5 Decanter Medical Inc. () Medline Medline 1 [id number] 389913 70643 933025 5 Cath Pack ([id number]) ACIST Hand Acist 1 20515 094134 269202 117808 5 Control Medical (71405) Systems Inc ACIST Acist 1 97337 944643 324360 864287 5 Manifold Medical (74433) Systems Inc DIAGNOSTIC Cardinal 1 AU9986 156545 92792 269576 30 Multipack Health 5Fr catheter set (RL9168) SHEATH 5FR Terumo 1 MEX930 857691 470475 928327 5 [place] (GDK895) EMERALD Cardinal 1 502-455 646344 265008 912098 5 Guide Wire Health (502-455) EXOSEAL 5Fr Cardinal 1 EX500 672463 925909 283454 10 (EX500) Health MULTIPACK Cardinal 1 610553 5 JL 4.0 5Fr Health catheter MULTIPACK Cardinal 1 541112 5 3DRC 5Fr Health catheter MULTIPACK Cardinal 1 083470 5 Pigtail 5 Health Fr catheter Tegaderm 4 3M 1 1626W 052678 983433 972335 5 x 4 (1626W) Signature Audit [place] Stage Time Signature Unsigned Intra-Procedure 01/11/2021 Janell Sierra 2:48:22 PM RT(R) Intra-Procedure 01/11/2021 Bogdan Gresham RN 2:48:44 PM Intra-Procedure 01/11/2021 Momo Hines MD 2:49:06 PM [facility] [address] [place] [address]
[~2021-01-11 11:35] MED LIST changes: +ASPIRIN325 MG PO; +BAYER CHEWABLE81 MG PO; +CITRACAL + D E1 EACH PO; +CO Q-10100 MG PO; +ELIQUIS5 MG PO; +FERROUS SULFAT325 MG PO; +FLOMAX0.4 MG PO; +LEVOTHYROXINE50 MCG PO; +VALSARTAN-HCTZ1 EAC4 PO
[2021-01-11 12:11] VITALS: BP 158/80; Ht 185.4 cm; Wt 96.3 kg
[2021-01-11 12:36] LABS: BASOPHILS 0.4 % (0-2); EOSINOPHILS 4.6 % (0-7); HEMOGLOBIN 14.5 g/dL (13.5-17.5); IMMATURE GRANULOCYTES 0.2 % (0-5); LYMPHOCYTE ABS# 1.13 10x3/uL (1.32-3.57); LYMPHOCYTES 20.6 % (15-50); MCH 30.5 pg (26.0-34.0); MCHC 33.7 g/dL (31.0-37.0); MCV 90.5 fL (80.0-100.0); MONOCYTES 7.3 % (2-11); NEUTROPHIL ABS# 3.68 10x3/uL (1.78-5.38); NEUTROPHILS 66.9 % (40-80); PLATELET COUNT 171 10x3/uL (130-400); RBC 4.75 10x6/uL (4.20-6.10); RDW 13.1 % (11.5-14.5); WBC 5.5 10x3/uL (4.8-10.8)
[2021-01-11 12:46] LABS: ANION GAP 10.9 mmol/L (8-16); CALCIUM 9.2 mg/dL (8.5-10.1); CARBON DIOXIDE 27.9 mmol/L (21.0-32.0); CHOL - HDL RATIO 2.9 ratio (2.3-4.9); CREATININE - SERUM 1.1 mg/dL (0.6-1.3); LDL-HDL RATIO 1.5 ratio (1.5-3.5); POTASSIUM - SERUM 3.8 mmol/L (3.5-5.1)
--- NOTE | 2021-01-11 14:55 | NUR ---
PT REC'D TO CATH RECOVERY ROOM 4 VIA STRETCHER. MONITORS ESTAB. 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 ALARMS ON AND C/L IN REACH.
--- NOTE | 2021-01-11 15:10 | NUR ---
R GROIN EXOSEAL SITE C/D/I, NO S/S BLEEDING OR HEMATOMA. PULSES PALP. R LEG/FOOT WARM WITH CAP REFILL WNL. ALARMS ON AND C/L IN REACH.
--- NOTE | 2021-01-11 15:40 | NUR ---
PT RESTING QUIETLY. R GROIN SITE SOFT, NO S/S BLEEDING OR HEMATOMA. PULSES PALP. VSS. PT DENIES PAIN OR NEEDS. ALARMS ON AND C/L IN REACH.
--- NOTE | 2021-01-11 16:00 | NUR ---
R GROIN SITE SOFT, C/D/I. PULSES PALP. HOB ELEVATED. SANDWICH TRAY AND COLA PROVIDED. VSS. C/L IN REACH.
--- NOTE | 2021-01-11 16:11 | NUR ---
I SPOKE WITH PTS SON RE: D/C INSTRUCTIONS AND PLAN FOR D/C HOME AT 1700. UPDATE GIVEN AND QUESTIONS ANSWERED.
== END | disposition home or self-care (01) ==
LOC: D.CATH 11:35
PROVIDERS: ATTEND Internal Medicine Cardiovascular Disease
DX: I25.118 Atherosclerotic heart disease of native coronary artery with other forms of angina pectoris (principal); R94.39 Abnormal result of other cardiovascular function study; I26.99 Other pulmonary embolism without acute cor pulmonale